=== PATIENT | male | born 1955 | race Caucasian/White ===

== ENCOUNTER 2023-06-08 22:19 | Inpatient (IN) | payer OTHER, SELFPAY ==
[2023-06-08] VITALS (7 sets, daily range): BP systolic 145–158; BP diastolic 74–84; PULSE 62–69; RESP 18; TEMP 36.2; O2SAT 99–100; BMI 24.4
--- NOTE | 2023-06-08 22:29 | DI.CT.S_ITS ---
PROCEDURE: CT ABDOMEN PELVIS W CON INDICATIONS: LLQ abdominal pain. TECHNIQUE: After the administration of IV contrast, axial sections were acquired from the lung bases to the pubic symphysis. Coronal and sagittal reformats were performed. For radiation dose reduction, the following was used: automated exposure control, adjustment of mA and/or kV according to patient size. COMPARISON: None. FINDINGS: Image quality: Excellent. Lung bases: There is minimal atelectasis. Heart: Heart is normal in size. ABDOMEN: Liver: There is a cyst in the right hepatic lobe. The Gallbladder: Within normal limits without calcified gallstones. Biliary ducts: No biliary ductal dilatation. Pancreas: Unremarkable. Spleen: Normal in size. Adrenal Glands: No adrenal nodules. Kidneys and Ureters: No hydronephrosis. Stomach and Bowel: There are a few mildly distended loops of small bowel measuring up to 2.8 cm. These include a distended segment in the right mid abdomen with a transition point centered on series 2, image 47. The proximal and distal transition points are in proximity, suggestive of a closed loop obstruction. There is also mild associated upstream small bowel dilatation. No pericecal inflammatory changes to suggest appendicitis. There is colonic diverticulosis without acute diverticulitis. Peritoneum: No abnormal intraperitoneal fluid. No free air. Ventral Wall: No hernia. Abdominal Nodes: No retroperitoneal or mesenteric adenopathy by size criteria. Vessels: Aorta and inferior vena cava are normal in size. PELVIS: Pelvic Organs: Unremarkable. Bladder: Unremarkable. Pelvic Nodes: No enlarged lymph nodes. Miscellaneous: No inguinal hernias are seen. Bones: Visualized osseous structures demonstrate no suspicious focal lesions. IMPRESSION: 1. Findings consistent with a small-bowel obstruction with a closed loop segment in the right mid abdomen. Findings discussed with Dr. Evans on 06/09/2023 at 12:15 a.m.. Dictated by: Hunter Steward M.D. on 06/08/2023 at 23:56 Approved by: Hunter Steward M.D. on 06/09/2023 at 0:17
--- NOTE | 2023-06-08 22:31 | ED_ITS ---
HPI - General Adult General Chief complaint: Abdominal Pain Stated complaint: Poss food poisoning Time Seen by Provider: 06/08/23 22:20 Source: patient Mode of arrival: Ambulatory Limitations: no limitations History of Present Illness HPI narrative: 68-year-old male who had a fairly sudden onset of abdominal pain and cramping that started today after he ate lunch. He states he is not nauseous or vomiting but feels like that he wants to vomit. Did have a bowel movement this morning but nothing since the onset of the symptoms. Has had a history of diverticulitis but this feels different from that. No fevers. No problems urinating. Related Data Home Medications Medication Instructions Recorded Confirmed ascorbic acid (vitamin C) 500 mg ##0 08/29/17 tablet cholecalciferol (vitamin D3) 25 ##0 08/29/17 mcg/spray(1,000 unit/spray) subling spray, susp coQ10 (ubiquinol) 100 mg capsule ##0 08/29/17 levothyroxine 13 mcg capsule ##0 08/29/17 (Tirosint) omega 3-tea-bhg-fish oil 1,000 mg 1,000 mg PO ##0 08/29/17 (120 mg-180 mg) capsule (Fish Oil) rutin 500 mg tablet ##0 08/29/17 testosterone 50 mg/5 gram (1 %) ##0 08/29/17 transdermal gel (Testim) vitamin B complex (B ##0 08/29/17 Complex-Vitamin B12 tablet) Previous Rx's Medication Instructions Recorded amoxicillin 875 mg-potassium 875 mg PO BID #20 tabs 08/29/17 clavulanate 125 mg tablet (Augmentin) Allergies Allergy/AdvReac Type Severity Reaction Status Date / Time gluten [GLUTEN] Allergy Mild intolerant Verified 06/08/23 22:30 Review of Systems Constitutional Constitutional: Reports system reviewed and no additional complaints, except as documented Gastrointestinal Gastrointestinal: Reports system reviewed and no additional complaints, except as documented Genitourinary Genitourinary: Reports system reviewed and no additional complaints, except as documented Integumentary/Breasts Skin/Breast: Reports system reviewed and no additional complaints, except as documented Neurologic Neurologic: Reports system reviewed and no additional complaints, except as documented Hematologic/Lymphatic On Anticoagulants: No Patient History Social History (Reviewed 09/11/23 @ 00:16 by MELISSA Saldaña Smoking Status: Never smoker Exam Initial Vital Signs Initial Vital Signs: Vital Signs Pulse Oximetry 99 06/08/23 22:26 Const General: cooperative and comfortable Resp Effort & Inspection: normal respiratory effort Auscultation: clear to auscultation bilaterally Cardio Rate: regular rate GI Inspection: normal to inspection and non-distended Palpation: soft, No firm and tender Neuro General: patient alert, patient awake and moves all extremities Extrem General: normal to inspection and capillary refill normal Course Orders Ordered: ED Orders 06/08/23 22:29 CT abdomen pelvis w con Stat 06/08/23 22:30 Complete Blood Count AUTO DIFF Stat Comprehensive Metabolic Panel Stat Lipase Stat Sodium Chloride (Normal Saline 0.9%) 1,000 mls @ 125 mls/hr IV CONT SALEEM Discontinued Medications Hydromorphone HCl (Hydromorphone 0.5 Mg Inj) 0.5 mg IV NOW ONE Stop: 06/08/23 23:46 Last Admin: 06/08/23 23:55 Dose: 0.5 mg Documented By: SHERRIE Sodium Chloride (Normal Saline 0.9%) 1,000 mls @ 1,000 mls/hr IV BOLUS ONE Stop: 06/08/23 23:28 Last Infusion: 06/08/23 23:40 Dose: 0 mls/hr Documented By: Admin: 06/08/23 22:41 Dose: 1,000 mls/hr Documented By: ABRIL Vital Signs Vital signs: Vital Signs - 8 hr 06/08/23 22:30 06/08/23 22:26 06/08/23 22:27 Temperature 97.2 F L Pulse Rate 68 Respiratory Rate 18 Blood Pressure 158/76 H 158/76 H Pulse Oximetry 100 99 Oxygen Delivery Method Room Air 06/08/23 22:27 06/08/23 22:29 06/08/23 22:29 Temperature Pulse Rate 68 63 Respiratory Rate Blood Pressure 153/76 H Pulse Oximetry 100 100 Oxygen Delivery Method 06/08/23 22:30 06/08/23 22:30 06/08/23 23:00 Temperature Pulse Rate 63 Respiratory Rate Blood Pressure 145/74 H 155/82 H Pulse Oximetry 100 Oxygen Delivery Method 06/08/23 23:00 06/08/23 23:17 06/08/23 23:17 Temperature Pulse Rate 65 62 Respiratory Rate Blood Pressure 156/84 H Pulse Oximetry 100 100 Oxygen Delivery Method 06/08/23 23:30 06/08/23 23:30 Temperature Pulse Rate 69 Respiratory Rate Blood Pressure 155/77 H Pulse Oximetry 100 Oxygen Delivery Method Medical Decision Making Lab Data Lab results reviewed: Yes I reviewed the patient's lab results. 06/08/23 22:30 06/08/23 22:30 Labs: Lab Results 06/08/23 06/08/23 Range/Units 22:30 22:30 WBC 7.3 (4.5-11.0) X10^3/uL RBC 4.33 L (4.5-5.9) X10^6/uL Hgb 14.5 (13.5-17.5) g/dL Hct 41.8 (41-53) % MCV 96.5 (80-100) fL MCH 33.4 (26-34) PG MCHC 34.6 (30-36) % RDW 14.6 (11.6-14.8) % Plt Count 258 (150-400) X10^3/uL Neut % (Auto) 67.0 (50-75) % Lymph % (Auto) 24.0 L (25-40) % [place] % (Auto) 7.7 (3-14) % Eos % (Auto) 0.8 L (2-4) % Baso % (Auto) 0.5 (0-2) % Neut # (Auto) 4900 (1435-4935) /uL Lymph # (Auto) 1800 (6577-4053) /uL [place] # (Auto) 600 (0-900) /uL Eos # (Auto) 100 (0-450) /uL Baso # (Auto) 0 (0-100) /uL Sodium 137 (137-145) mmol/L Potassium 3.8 (3.4-5.1) mmol/L Chloride 102 (98-107) mmol/L Carbon Dioxide 24 (22-32) mmol/L BUN 29 H (9-20) mg/dL Creatinine 1.42 H (0.66-1.25) mg/dL Estimated GFR 54 L (>60) mL/min BUN/Creatinine Ratio 20.4 (6-22) Glucose 117 H (80-110) mg/dL Calcium 9.3 (8.4-10.2) mg/dL Total Bilirubin 0.9 (0.2-1.3) mg/dL AST 35 (17-59) IU/L ALT 31 (<50) IU/L Alkaline Phosphatase 90 (38-126) U/L Total Protein 7.5 (6.3-8.2) g/dL Albumin 4.4 (3.5-5.0) g/dL Globulin 3.1 (1.7-4.1) g/dL Albumin/Globulin Ratio 1.4 (1.0-2.8) Lipase 190 (23-300) U/L Imaging Data CT scan - abdomen/pelvis: Radiologist's Impression: PROCEDURE:? CT ABDOMEN PELVIS W CON ? INDICATIONS:? LLQ abdominal pain. ? TECHNIQUE:? After the administration of IV contrast, axial sections were acquired from the lung bases to the pubic symphysis.? Coronal and sagittal reformats were performed.? For radiation dose reduction, the following was used:? automated exposure control, adjustment of mA and/or kV according to patient size. ? COMPARISON:? None. ? FINDINGS:? Image quality:? Excellent.? ? Lung bases:? There is minimal atelectasis.? ? Heart:? Heart is normal in size. ? ? ABDOMEN: Liver:? There is a cyst in the right hepatic lobe.? The Gallbladder:? Within normal limits without calcified gallstones.? ? Biliary ducts:? No biliary ductal dilatation.? ? Pancreas:? Unremarkable.? ? Spleen:? Normal in size.? ? Adrenal Glands:? No adrenal nodules.? ? Kidneys and Ureters:? No hydronephrosis.? ? ? Stomach and Bowel:? There are a few mildly distended loops of small bowel measuring up to 2.8 cm.? These include a distended segment in the right mid abdomen with a transition point centered on series 2, image 47. The proximal and distal transition points are in proximity, suggestive of a closed loop obstruction.? There is also mild associated upstream small bowel dilatation.? No pericecal inflammatory changes to suggest appendicitis.? There is colonic diverticulosis without acute diverticulitis. Peritoneum:? No abnormal intraperitoneal fluid.? No free air.? ? Ventral Wall: ? No hernia.? Abdominal Nodes:? No retroperitoneal or mesenteric adenopathy by size criteria.? Vessels:? Aorta and inferior vena cava are normal in size.? ? PELVIS: Pelvic Organs:? Unremarkable.? ? Bladder:? Unremarkable.? ? Pelvic Nodes: No enlarged lymph nodes.? Miscellaneous: No inguinal hernias are seen. ? ? ? Bones:? Visualized osseous structures demonstrate no suspicious focal lesions. ? IMPRESSION:? 1. Findings consistent with a small-bowel obstruction with a closed loop segment in the right mid abdomen.? Findings discussed with Dr. Evans on 06/09/2023 at 12:15 a. m..? MDM Narrative Medical decision making narrative: Symptoms started this morning. He states he denies any nausea and has not had any vomiting but states that he wants to throw up because he thinks he will feel better if he does so. His last bowel movement this morning. No prior abdominal surgeries. Last colonoscopy was within the past 3 months or they remove polyps and told him he had diverticulosis. CT scan today shows closed loop small bowel obstruction. Discussed the case with Dr. Kan on-call for General surgery who will admit for further evaluation and treatment. Discussed need for admission with the patient. We did discuss the findings of the CT scan. He expressed understanding and agreement as well. Discharge Plan Departure Patient Disposition: Admitted As Inpatient Clinical Impression: Small bowel obstruction
[2023-06-08] MEDS: SODIUM CHLORIDE 0.9% 1,000 ML 1000 ML IV (22:41)
[2023-06-08 22:46] LABS: Add Manual Diff / Slide Review NO; Basophils Absolute Auto 0 /uL (0-100); Basophils Percent Auto 0.5 % (0-2); Eosinophils Absolute Auto 100 /uL (0-450); Eosinophils Percent Auto 0.8 % (2-4); Hematocrit 41.8 % (41-53); Hemoglobin 14.5 g/dL (13.5-17.5); Lymphocytes Absolute Auto 1800 /uL (1100-4500); Mean Corpuscular HGB Conc 34.6 % (30-36); Mean Corpuscular Hemoglobin 33.4 PG (26-34); Mean Corpuscular Volume 96.5 fL (80-100); Monocytes Absolute Auto 600 /uL (0-900); Monocytes Percent Auto 7.7 % (3-14); Neutrophils Absolute Auto 4900 /uL (1500-7000); Platelet Count 258 X10^3/uL (150-400); Red Blood Cell Count 4.33 X10^6/uL (4.5-5.9); Red Cell Distribution Width 14.6 % (11.6-14.8); White Blood Cell Count 7.3 X10^3/uL (4.5-11.0)
[2023-06-08 22:57] LABS: Alanine Aminotransferase 31 IU/L (<50); Albumin 4.4 g/dL (3.5-5.0); Albumin Globulin Ratio 1.4 (1.0-2.8); Alkaline Phosphatase 90 U/L (38-126); Aspartate Aminotransferase 35 IU/L (17-59); BUN Creatinine Ratio 20.4 (6-22); Bilirubin Total 0.9 mg/dL (0.2-1.3); Blood Urea Nitrogen 29 mg/dL (9-20); Calcium 9.3 mg/dL (8.4-10.2); Carbon Dioxide 24 mmol/L (22-32); Chloride 102 mmol/L (98-107); Estimated Glomerular Filt Rate 54 mL/min (>60); Globulin 3.1 g/dL (1.7-4.1); Glucose 117 mg/dL (80-110); HEMOLYSIS < 15 (0-50); Lipase 190 U/L (23-300); Potassium 3.8 mmol/L (3.4-5.1); Sodium 137 mmol/L (137-145); Total Protein 7.5 g/dL (6.3-8.2)
--- NOTE | 2023-06-08 23:08 | PC.NURSE ---
Patient's grandson came out of the room asking for someone to talk with the patient. I went in and asked how I could help. Pt reports having increased abdominal cramping and feeling faint. I asked if he felt like he was going to pass out, patient responded no. I informed Pt the next step is a CT scan. geotechnical engineer arrived to transport patient.
[2023-06-08] MEDS: HYDROMORPHONE 0.5 MG INJ IV (23:55)
[2023-06-09] VITALS (9 sets, daily range): BP systolic 102–163; BP diastolic 65–83; PULSE 64–91; RESP 16–17; TEMP 35.9–36.4; O2SAT 96–100; BMI 24.4
--- NOTE | 2023-06-09 | DI.RAD.S_ITS ---
PROCEDURE: XR GASTROGRAFIN CHALLENGE COMPARISON: None. INDICATIONS: sbo FINDINGS: AP view of abdomen 4 hours after infusion of Gastrografin contrast via NG tube shows marked contrast distension of stomach lumen. No contrast is seen in small bowel or colon loops. No contrast extravasation. No gross peritoneal free air. IMPRESSION: Finding is highly suggestive of gastric outlet obstruction, GI correlation is recommended. Dictated by: Alexandru Pop M.D. on 06/09/2023 at 15:42 Approved by: Alexandru Pop M.D. on 06/09/2023 at 15:43
[2023-06-09] MEDS: DEXTROSE 5%-0.45% NS 1,000 ML 100 ML IV ×3 (01:11→21:16)
[2023-06-09] MEDS: HYDROMORPHONE 0.5 MG INJ IV ×2 (01:12→02:46)
[2023-06-09] MEDS: SCOPOLAMINE 1 PATCH TOP (01:13)
[2023-06-09] MEDS: HYDROMORPHONE 1 MG INJ IV ×4 (04:19→10:57)
[2023-06-09] MEDS: ONDANSETRON 4 MG/2 ML INJ IV ×2 (04:20→15:55)
--- NOTE | 2023-06-09 07:49 | DI.RAD.S_ITS ---
PROCEDURE: XR CHEST 1V INDICATIONS: confirm placement of NG TECHNIQUE: One view of the chest was acquired. COMPARISON: None. FINDINGS: Surgical changes and devices: Nasogastric tube tip in the esophagus just proximal to the GE junction. Side port in the mid to distal esophagus Lungs and pleura: Lungs are clear. No pleural effusions or pneumothorax. Mediastinum: Mediastinal contours appear normal. Heart size is normal. Bones and chest wall: No suspicious bony lesions. Overlying soft tissues appear unremarkable. IMPRESSION: Nasogastric tube in the esophagus. Advise repositioning. Approved by: Huber Kaye M.D. on 06/09/2023 at 15:37
--- NOTE | 2023-06-09 08:05 | PC.NURSE ---
0730: a/o, voices needs. ind w/ bed mobility, sitting EOB c/o n/v, no emesis, just retching. orders for NG placement. NG placed successfully w/ assist of RYAN Sommer. patient tolerated well. XR to confirm placement. NG to LIS per Dr Kan, who will be performing gastrographin today. patient resting w/ HOB up 75 degrees. NPO since admission at 0130. call light w/in reach.
[2023-06-09 10:01] LABS: Add Manual Diff / Slide Review NO; Basophils Absolute Auto 0 /uL (0-100); Basophils Percent Auto 0.1 % (0-2); Eosinophils Absolute Auto 0 /uL (0-450); Hematocrit 45.4 % (41-53); Hemoglobin 15.2 g/dL (13.5-17.5); Lymphocytes Absolute Auto 800 /uL (1100-4500); Lymphocytes Percent Auto 5.9 % (25-40); Mean Corpuscular HGB Conc 33.5 % (30-36); Mean Corpuscular Volume 98.7 fL (80-100); Monocytes Absolute Auto 600 /uL (0-900); Monocytes Percent Auto 4.4 % (3-14); Neutrophils Absolute Auto 12100 /uL (1500-7000); Neutrophils Percent Auto 89.6 % (50-75); Platelet Count 271 X10^3/uL (150-400); Red Cell Distribution Width 15.2 % (11.6-14.8); White Blood Cell Count 13.5 X10^3/uL (4.5-11.0)
[2023-06-09 10:12] LABS: Blood Urea Nitrogen 18 mg/dL (9-20); Calcium 9.4 mg/dL (8.4-10.2); Carbon Dioxide 21 mmol/L (22-32); Chloride 103 mmol/L (98-107); Estimated Glomerular Filt Rate > 60 mL/min (>60); Glucose 203 mg/dL (80-110); HEMOLYSIS < 15 (0-50); Potassium 4.2 mmol/L (3.4-5.1); Sodium 136 mmol/L (137-145)
--- NOTE | 2023-06-09 10:20 | P.CONS_ITS ---
History of Present Illness Consult details Date Patient Seen: 06/09/23 Time Patient Seen: 10:21 Chief complaint: Poss food poisoning Narrative: Ricki Stewart is a 68yo M with PMH of hypothyroidism who presented with acute abd pain, NV and found to have SBO. NG tube placed. Dr. Kan general surgery consulted medicine as patient had a run of A-fib on tele overnight. I confirmed this myself and is definitely A-fib on the tele strip, although no EKG was able to capture it. He is currently NSR on tele. He notes no history of A-fib, but says he has family members with it. He drinks alcohol daily. [id number] is 1 due to age alone. He is not opposed to taking a baby aspirin daily for this. He is in quite alot of pain from his SBO, and gastrografin study is planned for today. He denies palpitations, chest pain, or shortness of breath. Meds Home Medications and Allergies Home Medications Medication Instructions Recorded Confirmed Type ascorbic acid (vitamin C) 500 mg 500 mg PO DAILY ##0 08/29/17 06/09/23 History tablet coQ10 (ubiquinol) 100 mg capsule 100 mg PO DAILY ##0 08/29/17 06/09/23 History omega 5-fls-vjy-fish oil 1,000 mg 1,000 mg PO DAILY ##0 08/29/17 06/09/23 History (120 mg-180 mg) capsule (Fish Oil) rutin 500 mg tablet 500 mg PO DAILY ##0 08/29/17 06/09/23 History testosterone 50 mg/5 gram (1 %) See Rx Instructions .Route 08/29/17 06/09/23 History transdermal gel (Testim) .COMPLEX ##0 vitamin B complex (B 1 tab PO DAILY ##0 08/29/17 06/09/23 History Complex-Vitamin B12 tablet) cholecalciferol (vitamin D3) 125 125 mcg PO DAILY 06/09/23 06/09/23 History mcg (5,000 unit) capsule levothyroxine 75 mcg tablet 75 mcg PO DAILY 06/09/23 06/09/23 History liothyronine 5 mcg tablet 5 mcg PO DAILY 06/09/23 06/09/23 History Allergies Allergy/AdvReac Type Severity Reaction Status Date / Time gluten [GLUTEN] Allergy Mild intolerant Verified 06/08/23 22:30 Review of Systems Review of Systems Narrative: All other systems reviewed with the patient and are negative unless otherwise stated. Exam Vital Signs (past 8 hours): - 06/09/23 04:03 06/09/23 08:21 Temperature 97 F L 96.6 F L Pulse Rate 78 64 Respiratory Rate 17 16 Blood Pressure 147/83 H 163/79 H Pulse Oximetry 99 98 Oxygen Flow Rate 0 0 Oxygen Delivery Method Room Air Oxygen Flow Rate 0 Narrative Exam Narrative: GEN: mild distress due to pain, NG tube in place HEENT: moist mucous membranes, PERRL NECK: trachea midline, no JVD CV: regular rate and rhythm, no murmurs PULM: clear bilaterally ABD: distended, tender, no organomegaly EXT: warm and well perfused with no edema NEURO: awake, alert, oriented, no focal deficits Objective Labs 06/09/23 09:50 06/09/23 09:50 Labs: Laboratory Results - last 24 hr 06/08/23 06/08/23 06/09/23 22:30 22:30 09:50 WBC 7.3 13.5 H D RBC 4.33 L 4.60 Hgb 14.5 15.2 Hct 41.8 45.4 MCV 96.5 98.7 MCH 33.4 33.0 MCHC 34.6 33.5 RDW 14.6 15.2 H Plt Count 258 271 Neut % (Auto) 67.0 89.6 H D Lymph % (Auto) 24.0 L 5.9 L [place] % (Auto) 7.7 4.4 Eos % (Auto) 0.8 L 0.0 L Baso % (Auto) 0.5 0.1 Neut # (Auto) 4900 80309 H Lymph # (Auto) 1800 800 L [place] # (Auto) 600 600 Eos # (Auto) 100 0 Baso # (Auto) 0 0 Sodium 137 Potassium 3.8 Chloride 102 Carbon Dioxide 24 BUN 29 H Creatinine 1.42 H Estimated GFR 54 L BUN/Creatinine Ratio 20.4 Glucose 117 H Calcium 9.3 Total Bilirubin 0.9 AST 35 ALT 31 Alkaline Phosphatase 90 Total Protein 7.5 Albumin 4.4 Globulin 3.1 Albumin/Globulin Ratio 1.4 Lipase 190 06/09/23 09:50 WBC RBC Hgb Hct MCV MCH MCHC RDW Plt Count Neut % (Auto) Lymph % (Auto) [place] % (Auto) Eos % (Auto) Baso % (Auto) Neut # (Auto) Lymph # (Auto) [place] # (Auto) Eos # (Auto) Baso # (Auto) Sodium 136 L Potassium 4.2 Chloride 103 Carbon Dioxide 21 L BUN 18 Creatinine 1.00 Estimated GFR > 60 BUN/Creatinine Ratio 18.0 Glucose 203 H Calcium 9.4 Total Bilirubin AST ALT Alkaline Phosphatase Total Protein Albumin Globulin Albumin/Globulin Ratio Lipase PFSH Social History household members: spouse and family Tobacco & Substance Use Smoking Status: Former smoker alcohol intake: current Assessment & Plan Assessment & Plan narrative: # new onset paroxysmal atrial fibrillation -overnight on 06/08-06/09 at 3:00 a.m. patient had transient atrial fibrillation, he then returned in NSR -CHADS2 Vasc of 1 indicating baby aspirin daily -his BP is high but likely due to pain, he denies history of HTN. But if he in fact has HTN his score would be 2 indicating need for anticoag. PCP will need to f/u on this. -patient may start baby aspirin once SBO resolves -suggest also starting low-dose beta shanthi for rate control at 12.5mg of metoprolol succinate daily -should limit his alcohol intake, counseling given -may continue lovenox for now # SBO -management per gen surg # PABLO -creatinine 1.4 on admission and improved to 1 with IVF -monitor # elevated BG -check A1c to screen for diabetes, if positive he will need anticoag for his A- fib # hypothyroidism -can hold synthroid and liothyronine while NPO -check TSH Medicine will continue to follow. Thank you for allowing us to participate in the care of this patient. Should you have any questions, do not hesitate to speak with us directly or call us.
--- NOTE | 2023-06-09 10:32 | PM.HP.1 ---
History of Present Illness History of Present Illness Date Patient Seen: 06/09/23 Time Patient Seen: 07:45 Chief complaint: Poss food poisoning Narrative: Seen for abdominal pain, found to have SBO on CT scan that I also reviewed. No clinical signs of ischemic bowel. Admitted for bowel rest. Last evening his nurse noted he was in Afib via tele. Spontaneously converted to Normal sinus before 12 lead EKG was done. No passing of gas, abdominal pain is focal and in the area that is seen on CT. Nausea but not emesis. [facility] Social History household members: spouse and family Smoking Status: Former smoker alcohol intake: current Meds Home Medications and Allergies Home Medications Medication Instructions Recorded Confirmed Type ascorbic acid (vitamin C) 500 mg 500 mg PO DAILY ##0 08/29/17 06/09/23 History tablet coQ10 (ubiquinol) 100 mg capsule 100 mg PO DAILY ##0 08/29/17 06/09/23 History omega 7-jjb-bdf-fish oil 1,000 mg 1,000 mg PO DAILY ##0 08/29/17 06/09/23 History (120 mg-180 mg) capsule (Fish Oil) rutin 500 mg tablet 500 mg PO DAILY ##0 08/29/17 06/09/23 History testosterone 50 mg/5 gram (1 %) See Rx Instructions .Route 08/29/17 06/09/23 History transdermal gel (Testim) .COMPLEX ##0 vitamin B complex (B 1 tab PO DAILY ##0 08/29/17 06/09/23 History Complex-Vitamin B12 tablet) cholecalciferol (vitamin D3) 125 125 mcg PO DAILY 06/09/23 06/09/23 History mcg (5,000 unit) capsule levothyroxine 75 mcg tablet 75 mcg PO DAILY 06/09/23 06/09/23 History liothyronine 5 mcg tablet 5 mcg PO DAILY 06/09/23 06/09/23 History Allergies Allergy/AdvReac Type Severity Reaction Status Date / Time gluten [GLUTEN] Allergy Mild intolerant Verified 06/08/23 22:30 Exam Vital Signs (past 8 hours): - 06/09/23 04:03 06/09/23 08:21 Temperature 97 F L 96.6 F L Pulse Rate 78 64 Respiratory Rate 17 16 Blood Pressure 147/83 H 163/79 H Pulse Oximetry 99 98 Oxygen Flow Rate 0 0 Oxygen Delivery Method Room Air Oxygen Flow Rate 0 Const General: cooperative and acute distress Nutritional Appearance: average body habitus [facility] Head: normocephalic and atraumatic Face and sinus: normal facial exam Mouth: oral mucosae normal Eyes Sclera: sclerae normal Neck Neck: trachea midline Chest Chest: normal inspection of the chest Resp Effort & Inspection: normal respiratory effort and able to speak in complete sentences Cardio Rate: regular rate Rhythm: abnormal rhythm GI Inspection: distended Palpation: soft Skin General: elasticity normal Neuro General: patient alert, patient awake and patient oriented x3 Cognition: normal cognition Psych Mental Status: mental status grossly normal Judgment: judgment good Objective Labs 06/09/23 09:50 06/09/23 09:50 Labs: Laboratory Results - last 24 hr 06/08/23 06/08/23 06/09/23 22:30 22:30 09:50 WBC 7.3 13.5 H D RBC 4.33 L 4.60 Hgb 14.5 15.2 Hct 41.8 45.4 MCV 96.5 98.7 MCH 33.4 33.0 MCHC 34.6 33.5 RDW 14.6 15.2 H Plt Count 258 271 Neut % (Auto) 67.0 89.6 H D Lymph % (Auto) 24.0 L 5.9 L [place] % (Auto) 7.7 4.4 Eos % (Auto) 0.8 L 0.0 L Baso % (Auto) 0.5 0.1 Neut # (Auto) 4900 97561 H Lymph # (Auto) 1800 800 L [place] # (Auto) 600 600 Eos # (Auto) 100 0 Baso # (Auto) 0 0 Sodium 137 Potassium 3.8 Chloride 102 Carbon Dioxide 24 BUN 29 H Creatinine 1.42 H Estimated GFR 54 L BUN/Creatinine Ratio 20.4 Glucose 117 H Calcium 9.3 Total Bilirubin 0.9 AST 35 ALT 31 Alkaline Phosphatase 90 Total Protein 7.5 Albumin 4.4 Globulin 3.1 Albumin/Globulin Ratio 1.4 Lipase 190 06/09/23 09:50 WBC RBC Hgb Hct MCV MCH MCHC RDW Plt Count Neut % (Auto) Lymph % (Auto) [place] % (Auto) Eos % (Auto) Baso % (Auto) Neut # (Auto) Lymph # (Auto) [place] # (Auto) Eos # (Auto) Baso # (Auto) Sodium 136 L Potassium 4.2 Chloride 103 Carbon Dioxide 21 L BUN 18 Creatinine 1.00 Estimated GFR > 60 BUN/Creatinine Ratio 18.0 Glucose 203 H Calcium 9.4 Total Bilirubin AST ALT Alkaline Phosphatase Total Protein Albumin Globulin Albumin/Globulin Ratio Lipase Assessment & Plan Assessment & Plan narrative: Admitted for SBO in an abdomen w/o prior surgery New Afib now spontaneously back in NSR Plan: Gastrografin challenge for SBO Hospitalist consult for afib, Lovenox Time Spent With Patient Time with patient: less than 30 minutes Quality VTE Deep Vein Thrombosis/Pulmonary Embolism Present on Admission: No
[2023-06-09] MEDS: ENOXAPARIN 40 MG/0.4 ML SYRINGE SUBCUT (10:58)
[2023-06-09 11:23] LABS: Hemoglobin A1C% w Est Avg Glu 4.8 % (4.0-6.0)
[2023-06-09 11:50] LABS: TSH w/ Reflex to FT4 0.86 uIU/mL (0.47-4.68)
[2023-06-09 12:09] LABS: Lactate (Lactic Acid) 1.4 mmol/L (0.7-2.1)
[2023-06-09] MEDS: HYDROCODONE/ACET 5/325 TABLET 2 TAB PO (12:25)
[2023-06-09 12:26] LABS: Procalcitonin 0.05 ng/mL (<0.5)
[2023-06-09] MEDS: MORPHINE 4 MG/ML INJ IV (12:26)
--- NOTE | 2023-06-09 13:22 | CM.DANOTE ---
Initial DCP Assessment Note: Pt is a 68 year-old man who presented to the ED on 06/08 with sudden onset abdominal pain/cramping/nauseous, expressing that he thought he may have food poisoning. CT Abd/Pelvis showed a small bowel obstruction. Pt admitted for bowel rest and continued evaluation of possible surgery. Payor: Sofía Casiano. Surgeon: Dr. Kan PCP: Dr. Jorden Castillo CASH POSTER reviewed chart and team rounds care plan status. Met with pt at bedside to introduce self and role. He presents as uncomfortable, makes minimal eye contact, NG tube placed last evening.Pt is scheduled for further evaluation of SBO with a gastrographin study in order to determine the need for surgery or not. Home d/c needs not clear at this time, will be based on stability and recommendations of surgeon, PT/OT. Care management will continue to monitor care plan, and assist as needed. Discharge Planning/Care Management CM Discharge Assessment Start: 06/09/23 13:13 Freq: Status: Active Protocol: Document 06/09/23 13:14 DPL (Rec: 06/09/23 13:20 DPL [id number]) Discharge Planning Assessment Assigned Sole Blacker ELISEO Solis Advance Directives? No History Provided By Patient Has Patient been admitted in last 30 No days? Prior Living Arrangements House Comment Daughter, son-in-law, and grandson lives in lower level of home Household Members spouse,family Type of transporation used prior to Drives own vehicle admit Independent with ADL's Yes Is patient alert and oriented? Yes Comment N/A Caregiver for Another No Comment N/A Comment Pending continued stabilization, not known at the time of this assessement. Pt is scheduled for a gastrographin test today to determine the need for surgery . Barriers to Discharge No Discharge Plan Home Transportation Arrangement Pending PT/OT eval recommendations, as well as whether or not he has surgery for the small bowel obstruction. Referrals Initiated None needed Additional Comment Will continue to monitor and assist once d/c needs are known. If patient plan is home with home health No : Has signed face to face form been completed? Comment CASH POSTER will complete prior to d/c if needed. Whiteboard Updated in Patient Room with Yes name and ext. # of Sole Blacker Review Status In Process Please Provide Date Initial DC 06/09/23 Assessment Was Performed
--- NOTE | 2023-06-09 15:00 | DI.RAD.S_ITS ---
PROCEDURE: XR ABDOMEN 1V INDICATIONS: gastrografin study TECHNIQUE: One view of the abdomen acquired. COMPARISON: None. FINDINGS: Surgical changes and devices: None. Bowel: The stomach is markedly distended and filled with oral contrast. There is likely a small amount of oral contrast visualized within the proximal and mid small bowel. No definite contrast visualized within the colon. Soft tissues: No suspicious abdominal calcifications. Visualized solid organ contours appear normal in size. Bones: No suspicious bony lesions. IMPRESSION: Distended oral contrast filled stomach with trace oral contrast in the small bowel. Dictated by: Jade Carlson M.D. on 06/09/2023 at 15:59 Approved by: Jade Carlson M.D. on 06/09/2023 at 16:00
[2023-06-09] MEDS: MORPHINE 2 MG/ML INJ IV ×2 (15:55→21:19)
[2023-06-09] MEDS: diazePAM 10 MG/2 ML SYRINGE 2 MG IV ×2 (16:38→21:19)
[2023-06-09] MEDS: PANTOPRAZOLE 40 MG VIAL IV (16:39)
[2023-06-09] MEDS: KETOROLAC 30 MG/ML VIAL 15 MG IV ×2 (16:39→21:17)
--- NOTE | 2023-06-09 19:02 | PC.NURSE ---
1800: after several doses of dilauded, 1 norco, 1 dose of morphine: patient still c/o pain that was consistently 10/10, rigid abd. gastrographin completed, stat abd XR completed. NG at LIS reconnected. approx 900cc drainage collected in the canister. patient expressed some relief.. declined 1 time order for fentanyl IV. call to Dr Kan, she spoke w/ patient, and this RN at length about options for pain relief: continue w/ morphine, start protonix, valium, toradol. all above were given w/ good effect. pain decreased to 2/10 after he rested in the recliner for over an hour. no facial grimacing, no moaning or restlessness noted during this rest. patient states i feel so much better. paperwork on ileus given to patient and . strongly encouraged patient to ambulate hallways. continues w/ IVF, NPO status, and swabs and ice water for good oral care provided at bedside. call light w/in reach.
[2023-06-10 00:14] VITALS: BP 105/65; PULSE 78; RESP 19; TEMP 36.7; O2SAT 95
--- NOTE | 2023-06-10 02:08 | DI.RAD.S_ITS ---
PROCEDURE: XR CHEST 1V INDICATIONS: Re-confirm placement of NG, pt displaced TECHNIQUE: One view of the chest was acquired. COMPARISON: [facility], CT, CT ABDOMEN PELVIS W CON, 06/08/2023, 22:55. [facility], CR, XR CHEST 1V, 06/09/2023, 7:45. FINDINGS: Surgical changes and devices: Enteric tube is coiled in the stomach. The enteric tube has been advanced. There is a small amount of high-density within the stomach which could represent contrast or medication fragments. Lungs and pleura: Minimal hazy and streaky opacity at the lung bases which has the appearance of atelectasis. No pleural effusions or pneumothorax. Mediastinum: Mediastinal contours appear normal. Heart size is normal. Bones and chest wall: No suspicious bony lesions. Overlying soft tissues appear unremarkable. IMPRESSION: Enteric tube is coiled in the stomach in the expected position. Bibasilar atelectasis. This report is concordant with the overnight preliminary interpretation. Dictated by: Maksim Bauer M.D. on 06/10/2023 at 7:41 Approved by: Maksim Bauer M.D. on 06/10/2023 at 7:43
[2023-06-10] MEDS: KETOROLAC 30 MG/ML VIAL 15 MG IV (03:54)
[2023-06-10] MEDS: MORPHINE 2 MG/ML INJ IV (03:55)
[2023-06-10 04:23] VITALS: BP 121/78; PULSE 74; RESP 19; TEMP 36.1; O2SAT 95
[2023-06-10 06:19] LABS: Add Manual Diff / Slide Review NO; Basophils Absolute Auto 0 /uL (0-100); Basophils Percent Auto 0.1 % (0-2); Eosinophils Absolute Auto 0 /uL (0-450); Hematocrit 48.1 % (41-53); Lymphocytes Absolute Auto 1200 /uL (1100-4500); Lymphocytes Percent Auto 9.9 % (25-40); Mean Corpuscular HGB Conc 33.4 % (30-36); Mean Corpuscular Hemoglobin 32.4 PG (26-34); Mean Corpuscular Volume 97.2 fL (80-100); Monocytes Absolute Auto 1000 /uL (0-900); Monocytes Percent Auto 8.4 % (3-14); Neutrophils Absolute Auto 10100 /uL (1500-7000); Neutrophils Percent Auto 81.6 % (50-75); Platelet Count 258 X10^3/uL (150-400); Red Blood Cell Count 4.94 X10^6/uL (4.5-5.9); Red Cell Distribution Width 15.2 % (11.6-14.8); White Blood Cell Count 12.4 X10^3/uL (4.5-11.0)
--- NOTE | 2023-06-10 06:22 | PC.NURSE ---
Pt displaced original NGT placement @0200 while transferring. Tubing re-secured, set to low intermittent suction, and chest XR reports acceptable NGT placement. Pt denies pain, nausea, and tolerated procedure well.
[2023-06-10 06:34] LABS: Alanine Aminotransferase 22 IU/L (<50); Albumin 3.5 g/dL (3.5-5.0); Albumin Globulin Ratio 1.2 (1.0-2.8); Alkaline Phosphatase 68 U/L (38-126); Aspartate Aminotransferase 24 IU/L (17-59); BUN Creatinine Ratio 14.8 (6-22); Bilirubin Total 1.3 mg/dL (0.2-1.3); Blood Urea Nitrogen 30 mg/dL (9-20); Calcium 8.5 mg/dL (8.4-10.2); Carbon Dioxide 25 mmol/L (22-32); Chloride 103 mmol/L (98-107); Estimated Glomerular Filt Rate 35 mL/min (>60); Globulin 2.9 g/dL (1.7-4.1); Glucose 137 mg/dL (80-110); HEMOLYSIS < 15 (0-50); Potassium 4.4 mmol/L (3.4-5.1); Sodium 133 mmol/L (137-145); Total Protein 6.4 g/dL (6.3-8.2)
--- NOTE | 2023-06-10 07:09 | DI.US.S_ITS ---
PROCEDURE: US RENAL COMPLETE INDICATIONS: ACUTE KIDNEY INJURY TECHNIQUE: Real-time scanning was performed of the kidneys and bladder, with image documentation. COMPARISON: [facility], CT, CT ABDOMEN PELVIS W CON, 06/08/2023, 22:55. FINDINGS: Kidneys: Kidneys are normal in size. Right kidney measures 11.3 cm long; left kidney measures 10.7 cm long. Right renal cortical thickness is 1.6 cm; left renal cortical thickness is 1.4 cm. Renal cortical echotexture is normal. No hydronephrosis or nephrolithiasis. No suspicious solid mass lesions. Bladder: Pre-void bladder volume is 61.4 mL. Post-void residual is 3.4 mL. Pre-void images demonstrate no intraluminal masses or stones. On pre-void images, bilateral ureteral jets are noted with color Doppler interrogation. (Of note, ureteral jets may not be detectable in up to 25% of cases due to insufficient differences in specific gravity between ureteral and bladder urine). Miscellaneous: Ascites in the right upper quadrant is noted. IMPRESSION: 1. The kidneys are normal in appearance without hydronephrosis. 2. Incidental note of right upper quadrant ascites. Dictated by: Camacho Hardy M.D. on 06/10/2023 at 11:53 Approved by: Camacho Hardy M.D. on 06/10/2023 at 11:54
[2023-06-10] MEDS: SODIUM CHLORIDE 0.9% 1,000 ML 125 ML IV (07:36)
[2023-06-10 08:00] VITALS: BP 109/76; PULSE 82; RESP 17; TEMP 36.3; O2SAT 98
--- NOTE | 2023-06-10 08:37 | P.PN_ITS ---
Subjective Subjective Interval history: Patient's Cr bumped from 1 to 2 overnight. Renal US negative but shows some RUQ ascites. IVF given. Patient states he is not passing any gas at all. NG tube as not been removing much. His abd pain is improved. Exam Vital Signs (past 8 hours): - 06/10/23 04:23 Temperature 97 F L Pulse Rate 74 Respiratory Rate 19 Blood Pressure 121/78 Pulse Oximetry 95 Oxygen Flow Rate 0 Oxygen Delivery Method Room Air Oxygen Flow Rate 0 Narrative Exam Narrative: GEN: calm, NG tube in place HEENT: moist mucous membranes, PERRL NECK: trachea midline, no JVD CV: regular rate and rhythm, no murmurs PULM: clear bilaterally ABD: distended, tender, no organomegaly EXT: warm and well perfused with no edema NEURO: awake, alert, oriented, no focal deficits Objective Labs 06/10/23 06:05 06/10/23 06:05 Labs: Laboratory Results - last 24 hr 06/09/23 06/09/23 06/09/23 09:50 09:50 09:50 WBC 13.5 H D RBC 4.60 Hgb 15.2 Hct 45.4 MCV 98.7 MCH 33.0 MCHC 33.5 RDW 15.2 H Plt Count 271 Neut % (Auto) 89.6 H D Lymph % (Auto) 5.9 L [place] % (Auto) 4.4 Eos % (Auto) 0.0 L Baso % (Auto) 0.1 Neut # (Auto) 74738 H Lymph # (Auto) 800 L [place] # (Auto) 600 Eos # (Auto) 0 Baso # (Auto) 0 Sodium 136 L Potassium 4.2 Chloride 103 Carbon Dioxide 21 L BUN 18 Creatinine 1.00 Estimated GFR > 60 BUN/Creatinine Ratio 18.0 Glucose 203 H Hemoglobin A1c Lactate Calcium 9.4 Total Bilirubin AST ALT Alkaline Phosphatase Total Protein Albumin Globulin Albumin/Globulin Ratio Procalcitonin TSH 0.86 06/09/23 06/09/23 06/09/23 09:50 09:50 11:50 WBC RBC Hgb Hct MCV MCH MCHC RDW Plt Count Neut % (Auto) Lymph % (Auto) [place] % (Auto) Eos % (Auto) Baso % (Auto) Neut # (Auto) Lymph # (Auto) [place] # (Auto) Eos # (Auto) Baso # (Auto) Sodium Potassium Chloride Carbon Dioxide BUN Creatinine Estimated GFR BUN/Creatinine Ratio Glucose Hemoglobin A1c 4.8 Lactate 1.4 Calcium Total Bilirubin AST ALT Alkaline Phosphatase Total Protein Albumin Globulin Albumin/Globulin Ratio Procalcitonin 0.05 TSH 06/10/23 06/10/23 06/10/23 06:05 06:05 06:05 WBC 12.4 H RBC 4.94 Hgb 16.0 Hct 48.1 MCV 97.2 MCH 32.4 MCHC 33.4 RDW 15.2 H Plt Count 258 Neut % (Auto) 81.6 H Lymph % (Auto) 9.9 L [place] % (Auto) 8.4 Eos % (Auto) 0.0 L Baso % (Auto) 0.1 Neut # (Auto) 87795 H Lymph # (Auto) 1200 [place] # (Auto) 1000 H Eos # (Auto) 0 Baso # (Auto) 0 Sodium 133 L Potassium 4.4 Chloride 103 Carbon Dioxide 25 BUN 30 H Creatinine 2.03 H Estimated GFR 35 L BUN/Creatinine Ratio 14.8 Glucose 137 H Hemoglobin A1c Lactate 1.0 Calcium 8.5 Total Bilirubin 1.3 AST 24 ALT 22 Alkaline Phosphatase 68 Total Protein 6.4 Albumin 3.5 Globulin 2.9 Albumin/Globulin Ratio 1.2 Procalcitonin TSH FORMERLY [facility], 1928–1983 Social History household members: spouse and family Smoking Status: Former smoker alcohol intake: current Assessment & Plan Assessment & Plan narrative: # new onset paroxysmal atrial fibrillation -overnight on 06/08-06/09 at 3:00 a.m. patient had transient atrial fibrillation, he then returned in NSR -CHADS2 Vasc of 1 indicating baby aspirin daily -his BP is high but likely due to pain, he denies history of HTN. But if he in fact has HTN his score would be 2 indicating need for anticoag. PCP will need to f/u on this. -patient may start baby aspirin once SBO resolves -suggest also starting low-dose beta shanthi for rate control at 12.5mg of metoprolol succinate daily -should limit his alcohol intake, counseling given -may continue lovenox for now # SBO -gastrografin showed possible GOO, NG tube in place but not removing much -patient not passing any gas -gen surg thinks ileus is the cause of SBO -will obtain CT abd pelvis with oral contrast to better assess SBO and why there is RUQ ascites on US -management per gen surg # PABLO -creatinine 1.4 on admission and improved to 1 with IVF -Cr lenore again to 2, renal US normal -avoid nephrotoxic agents -giving more IVF -monitor # elevated BG -A1c 4.8% # hypothyroidism -can hold synthroid and liothyronine while NPO -TSH normal Medicine will continue to follow. Thank you for allowing us to participate in the care of this patient. Should you have any questions, do not hesitate to speak with us directly or call us. Quality VTE Deep Vein Thrombosis/Pulmonary Embolism Present on Admission: No
[2023-06-10] MEDS: SODIUM CHLORIDE 0.45% 1,000 ML 1000 ML IV (09:15)
[2023-06-10] MEDS: PANTOPRAZOLE 40 MG VIAL IV (09:15)
[2023-06-10 09:50] LABS: Appearance Urine UA SL CLOUDY; Bilirubin Urine UA 1+ (NEGATIVE); Color Urine UA ORANGE; Glucose Urine UA NEGATIVE (Negative); Ketones Urine UA TRACE (NEGATIVE); Leukocyte Esterase Urine UA NEGATIVE (NEGATIVE); Nitrite Urine UA POSITIVE (Negative); Occult Blood Urine UA NEGATIVE (Negative); Protein Urine UA 1+ (Negative); Specific Gravity Urine UA >=1.030 (1.000-1.035); pH Urine UA 5.5 (4.5-8.0)
[2023-06-10 10:01] LABS: Bacteria Urine None Seen; Ictotest Urine Negative (Negative); RBC Urine None Seen (0-5/HPF); WBC Urine 1-5/HPF (0-5/HPF)
[2023-06-10 10:02] LABS: Culture Indicated Urine Specimen Cultured; Hyaline Casts Urine 10-30/LPF; Squamous Epithelial Cell Urine 1-5 /HPF (0-5/HPF)
[2023-06-10 12:00] VITALS: BP 118/72; PULSE 73; RESP 17; TEMP 36.2; O2SAT 95
[2023-06-10] MEDS: HYDROMORPHONE 0.5 MG INJ IV ×2 (12:16→15:44)
--- NOTE | 2023-06-10 13:31 | PM.PN.1 ---
Subjective Subjective Date Patient Seen: 06/10/23 Time Patient Seen: 13:31 Interval history: Still no flatus or BM, NGT has minimal out but there is an issue with the function of NGT and thickness of the gastric content. Residual gastrografin seen on images today. No significant pain like yesterday. Exam Vital Signs (past 8 hours): - 06/10/23 08:00 Temperature 97.3 F L Pulse Rate 82 Respiratory Rate 17 Blood Pressure 109/76 Pulse Oximetry 98 Oxygen Flow Rate 0 Oxygen Delivery Method Room Air Oxygen Flow Rate 0 Narrative Exam Narrative: abdomen soft, slight distended, no focal tenderness. Objective Labs 06/10/23 06:05 06/10/23 06:05 Labs: Laboratory Results - last 24 hr 06/10/23 06/10/23 06/10/23 06:05 06:05 06:05 WBC 12.4 H RBC 4.94 Hgb 16.0 Hct 48.1 MCV 97.2 MCH 32.4 MCHC 33.4 RDW 15.2 H Plt Count 258 Neut % (Auto) 81.6 H Lymph % (Auto) 9.9 L [place] % (Auto) 8.4 Eos % (Auto) 0.0 L Baso % (Auto) 0.1 Neut # (Auto) 38401 H Lymph # (Auto) 1200 [place] # (Auto) 1000 H Eos # (Auto) 0 Baso # (Auto) 0 Sodium 133 L Potassium 4.4 Chloride 103 Carbon Dioxide 25 BUN 30 H Creatinine 2.03 H Estimated GFR 35 L BUN/Creatinine Ratio 14.8 Glucose 137 H Lactate 1.0 Calcium 8.5 Total Bilirubin 1.3 AST 24 ALT 22 Alkaline Phosphatase 68 Total Protein 6.4 Albumin 3.5 Globulin 2.9 Albumin/Globulin Ratio 1.2 Urine Color Urine Appearance Urine pH Ur Specific [place] Urine Protein Urine Glucose (UA) Urine Ketones Urine Occult Blood Urine Nitrate Urine Bilirubin Ur Bilirubin Confirm Urine Urobilinogen Ur Leukocyte Esterase Urine RBC Urine WBC Ur Squamous Epith Cells Urine Bacteria Hyaline Casts Ur Culture Indicated? 06/10/23 09:20 WBC RBC Hgb Hct MCV MCH MCHC RDW Plt Count Neut % (Auto) Lymph % (Auto) [place] % (Auto) Eos % (Auto) Baso % (Auto) Neut # (Auto) Lymph # (Auto) [place] # (Auto) Eos # (Auto) Baso # (Auto) Sodium Potassium Chloride Carbon Dioxide BUN Creatinine Estimated GFR BUN/Creatinine Ratio Glucose Lactate Calcium Total Bilirubin AST ALT Alkaline Phosphatase Total Protein Albumin Globulin Albumin/Globulin Ratio Urine Color [place] Urine Appearance Sl cloudy Urine pH 5.5 Ur Specific [place] >=1.030 H Urine Protein 1+ H Urine Glucose (UA) Negative Urine Ketones Trace H Urine Occult Blood Negative Urine Nitrate Positive H Urine Bilirubin 1+ H Ur Bilirubin Confirm Negative Urine Urobilinogen 1.0 Ur Leukocyte Esterase Negative Urine RBC None seen Urine WBC 1-5/hpf Ur Squamous Epith Cells 1-5 /hpf Urine Bacteria None seen Hyaline Casts 10-30/lpf Ur Culture Indicated? Specimen cultured PFSH Social History household members: spouse and family Smoking Status: Former smoker alcohol intake: current Assessment & Plan Assessment & Plan narrative: SBO is likely resolved or non existent given the caliber of SB we can see from the small amount of gastrografin that left the stomach. Ileus seen clearly as the gastrografin never left the stomach after 4 hours. By process of elimination this is likely a viral syndrome Acute renal injury either from dehydration or bumped due to Toradol which has been stopped. Plan: supportive care NGT clamp trial with sips of clears. Time Spent With Patient Time with patient: 30 to 49 minutes with 50% spent counseling/coordinating care Quality VTE Deep Vein Thrombosis/Pulmonary Embolism Present on Admission: No
--- NOTE | 2023-06-10 14:17 | PC.NURSE ---
1415 NG clamped. pt given/taking in sips of contrast in preparation for CT procedure scheduled to be around 1445.
--- NOTE | 2023-06-10 14:51 | DI.CT.S_ITS ---
PROCEDURE: CT ABDOMEN PELVIS WO CON INDICATIONS: SBO, possible GOO on gastrografin TECHNIQUE: After the administration of oral contrast, 5 mm thick sections acquired from the diaphragms to the symphysis. 5 mm coronal and sagittal reformats were performed. For radiation dose reduction, the following was used: automated exposure control, adjustment of mA and/or kV according to patient size. COMPARISON: None. FINDINGS: Image quality: Excellent. ABDOMEN: Lung bases: Atelectasis is present at the right lung base. There is a small low-density right pleural effusion. Solid organs: Liver is normal in size. A hepatic cyst is noted within the superior right hepatic lobe. Vicarious excretion of contrast is present within the gallbladder. Pancreas is normal in size. Spleen is normal in size. No adrenal nodules. Both kidneys are normal in size, without hydronephrosis or nephrolithiasis. Peritoneum and bowel: A nasogastric tube is present within the gastric fundus. The esophagus is patulous and filled with oral contrast where visualized. The stomach is distended and filled with oral contrast. The duodenum is decompressed. The proximal jejunum is decompressed. The midportion of the small bowel is dilated and filled with oral contrast. A discrete tapered narrowing is present within the right mid abdomen (series 2/image 63 and series 4/image 31). Findings suggest abrupt partial or near complete bowel obstruction secondary to an internal hernia. The downstream small bowel is decompressed without the presence of oral contrast. The colon demonstrates normal caliber and wall thickness and the right hemicolon is filled with some stool. There are scattered sigmoid diverticula. No evidence for diverticulitis. There is a moderate amount of low-density free fluid within the abdomen and pelvis. Nodes and vessels: No retroperitoneal or mesenteric adenopathy by size criteria. Aorta and inferior vena cava are normal in size. Miscellaneous: No ventral hernias. PELVIS: Genitourinary: Bladder wall thickness is normal. Miscellaneous: No inguinal hernias or adenopathy. Bones: No suspicious bony lesions. No vertebral body compression fractures. IMPRESSION: 1. Small bowel obstruction as above likely secondary to internal hernia. 2. Diverticulosis. No acute diverticulitis. 3. Probable right basilar atelectasis although aspiration/infection cannot be entirely excluded. Consider short interval plain film follow-up to ensure resolution. Dictated by: Jade Carlson M.D. on 06/10/2023 at 15:27 Approved by: Jade Carlson M.D. on 06/10/2023 at 15:35
[2023-06-10 16:00] VITALS: BP 117/77; PULSE 77; RESP 17; TEMP 36.6; O2SAT 96
--- NOTE | 2023-06-10 16:41 | PM.CALLCOV.1 ---
Call Coverage Note Note Date of Patient Contact: 06/10/23 Time of Patient Contact: 16:41 Narrative of Care Provided: Repeat CT scan shows persistent transition in Right mid abdomen possibly an internal hernia, along with new free fluid in abdomen. Plan is NPO, NGT to LIS and scheduled for Xlap tomorrow if no significant change.
[2023-06-10] MEDS: SODIUM CHLORIDE 0.9% 1,000 ML 100 ML IV (19:04)
[2023-06-10 20:00] VITALS: BP 146/79; PULSE 78; RESP 16; TEMP 37.1; O2SAT 98
[2023-06-10] MEDS: diazePAM 10 MG/2 ML SYRINGE 2 MG IV (20:47)
[2023-06-10] MEDS: HYDROMORPHONE 1 MG INJ IV (20:47)
[2023-06-11] VITALS (18 sets, daily range): BP systolic 116–164; BP diastolic 63–87; PULSE 73–95; RESP 7–18; TEMP 35.6–37.6; O2SAT 91–99; BMI 24.4
[2023-06-11] MEDS: HYDROMORPHONE 1 MG INJ IV ×6 (03:25→20:28)
[2023-06-11] MEDS: diazePAM 10 MG/2 ML SYRINGE 2 MG IV ×2 (03:26→20:30)
[2023-06-11] MEDS: PANTOPRAZOLE 40 MG VIAL IV (08:34)
[2023-06-11 08:47] LABS: Add Manual Diff / Slide Review NO; Basophils Absolute Auto 0 /uL (0-100); Basophils Percent Auto 0.2 % (0-2); Eosinophils Absolute Auto 0 /uL (0-450); Eosinophils Percent Auto 0.3 % (2-4); Hematocrit 41.6 % (41-53); Hemoglobin 14.1 g/dL (13.5-17.5); Lymphocytes Absolute Auto 1000 /uL (1100-4500); Lymphocytes Percent Auto 9.2 % (25-40); Mean Corpuscular HGB Conc 33.8 % (30-36); Mean Corpuscular Hemoglobin 32.7 PG (26-34); Mean Corpuscular Volume 96.9 fL (80-100); Monocytes Absolute Auto 1100 /uL (0-900); Monocytes Percent Auto 10.2 % (3-14); Neutrophils Absolute Auto 8400 /uL (1500-7000); Neutrophils Percent Auto 80.1 % (50-75); Platelet Count 231 X10^3/uL (150-400); Red Blood Cell Count 4.29 X10^6/uL (4.5-5.9); Red Cell Distribution Width 14.7 % (11.6-14.8); White Blood Cell Count 10.5 X10^3/uL (4.5-11.0)
[2023-06-11 08:58] LABS: BUN Creatinine Ratio 21.8 (6-22); Blood Urea Nitrogen 26 mg/dL (9-20); Calcium 8.6 mg/dL (8.4-10.2); Carbon Dioxide 29 mmol/L (22-32); Chloride 102 mmol/L (98-107); Estimated Glomerular Filt Rate > 60 mL/min (>60); Glucose 102 mg/dL (80-110); HEMOLYSIS 23 (0-50); Potassium 4.7 mmol/L (3.4-5.1); Sodium 136 mmol/L (137-145)
[2023-06-11 09:05] LABS: Magnesium 1.6 mg/dL (1.6-2.3)
--- NOTE | 2023-06-11 10:29 | P.OP.PRE_ITS ---
Pre-operative Note COVID-19 COVID-19 status: Negative Interval Note History & Physical reviewed/Exam performed by Physician: Yes Changes to H&P: Yes H&P completed within 30 days and has changed as indicated here:: failed gastrogr afin, repeat CT scan shows persistent SBO with transition. Acute renal injury has resolved. One episode of Afib that spontaneously converted to NSR. Going for Xlap
--- NOTE | 2023-06-11 10:38 | PC.NURSE ---
Day shift: Pt to OR with IRON LAUNDER OPERATOR at 1030.
[2023-06-11] MEDS: LACTATED RINGERS 1,000 ML 120 ML IV ×2 (10:54→14:00)
[2023-06-11] MEDS: CEFAZOLIN VIAL 2 GM in SODIUM CHLORIDE 0.9% 100 ML IV (11:28)
--- NOTE | 2023-06-11 12:19 | P.OP_ITS ---
Operative Date/Time/Diagnoses Date of procedure: 06/11/23 Time of procedure: 12:19 Pre-op diagnosis: Small bowel obstruction Post-op diagnosis: same Procedure & Clinicians Procedure: Exploratory laparotomy with lysis of adhesion Same procedure as scheduled: Yes Indications: Small bowel obstruction Surgeon: Jolly Kan Click Yes if Unassisted: No Anesthesia Type: General Operative Notes Findings: Single adhesive band in the mid jejunum, no internal hernia identified. Bowel was congested, but viable, no resection required Closure Type: primary Specimen(s): none sent Applied: other (NG tube remained in place) Estimated Blood Loss (mL): 20 Blood products transfused: none Procedure in detail: Preop diagnosis: Small-bowel obstruction Postop diagnosis: Same Operative procedure: Exploratory laparotomy with lysis of adhesion Surgeon: Tina Kan MD assisted living assistant: FRANCISCO Montoya Findings: A single band causing obstruction in the mid to distal jejunal portion of the small bowel. Congestion of the mesentery and hemorrhagic ascites. Procedure: Patient placed in a supine position. Prepped and draped in sterile fashion to expose his abdomen. Supraumbilical midline incision was created using electrocautery and open technique. I was able to mobilize the small bowel into the wound and with blunt dissection released the single band adhesion from the omentum. Abdomen was suctioned to remove free fluid, omentum was brought down across the exposed bowel. Fascia was closed with a running looped 0 PDS. Skin was closed with a running 4-0 Vicryl. Steri-Strips and sterile dressings were placed. Francisco tient was awakened, extubated, taken to recovery room in stable condition. Needle, instrument, sponge counts were correct. Blood loss: 20 mL Specimen: None
[2023-06-11] MEDS: fentaNYL 100 MCG/2 ML INJ IV (12:27)
--- NOTE | 2023-06-11 12:54 | SUR.PHASEI ---
Assumed care. Patient reported pain improved to 7/10 after reposition and ice pack.
--- NOTE | 2023-06-11 13:04 | SUR.PHASEI ---
Report called to Karina
--- NOTE | 2023-06-11 13:34 | SUR.PHASEI ---
Patient transferred to the floor with garcia ring. Report given to Cristal, condition stable. Mild shadow drainage to abdominal dressing. NG to LIS.
[2023-06-11] MEDS: MAGNESIUM SULFATE 2 GM/50 ML PIGGYBACK IV (14:00)
--- NOTE | 2023-06-11 15:00 | PM.PN.1 ---
Subjective Subjective Interval history: Patient to go to ex lap surgery today after CT abd w po contrast yesterday showed possible internal hernia causing bowel obstruction. Exam Vital Signs (past 8 hours): - 06/11/23 08:00 06/11/23 10:49 06/11/23 12:19 Temperature 96.1 F L 98.2 F 98.8 F Pulse Rate 81 84 85 Respiratory Rate 18 15 18 Blood Pressure 143/76 H 145/83 H 139/79 Pulse Oximetry 96 98 95 Oxygen Delivery Method Room Air Room Air Oxygen Flow Rate 06/11/23 12:24 06/11/23 12:46 06/11/23 12:29 Temperature 99.7 F H Pulse Rate 75 73 74 Respiratory Rate 16 18 12 Blood Pressure 140/74 164/81 H 147/78 H Pulse Oximetry 94 99 94 Oxygen Delivery Method Nasal Cannula Room Air Nasal Cannula Oxygen Flow Rate 2 4 06/11/23 12:34 06/11/23 12:59 06/11/23 13:12 Temperature 98.6 F Pulse Rate 75 79 Respiratory Rate 12 7 L Blood Pressure 151/81 H 150/87 H Pulse Oximetry 94 97 Oxygen Delivery Method Room Air Nasal Cannula Oxygen Flow Rate 2 06/11/23 13:15 06/11/23 13:35 Temperature 97.1 F L Pulse Rate 84 83 Respiratory Rate 13 16 Blood Pressure 144/79 H 149/83 H Pulse Oximetry 93 94 Oxygen Delivery Method Room Air Oxygen Flow Rate Oxygen Delivery Method Room Air Oxygen Flow Rate 2 Narrative Exam Narrative: GEN: calm, NG tube in place HEENT: moist mucous membranes, PERRL NECK: trachea midline, no JVD CV: regular rate and rhythm, no murmurs PULM: clear bilaterally ABD: distended, tender, no organomegaly EXT: warm and well perfused with no edema NEURO: awake, alert, oriented, no focal deficits Objective Labs 06/11/23 08:36 06/11/23 08:36 Labs: Laboratory Results - last 24 hr 06/11/23 06/11/23 06/11/23 08:36 08:36 08:36 WBC 10.5 RBC 4.29 L Hgb 14.1 Hct 41.6 MCV 96.9 MCH 32.7 MCHC 33.8 RDW 14.7 Plt Count 231 Neut % (Auto) 80.1 H Lymph % (Auto) 9.2 L [place] % (Auto) 10.2 Eos % (Auto) 0.3 L Baso % (Auto) 0.2 Neut # (Auto) 8400 H Lymph # (Auto) 1000 L [place] # (Auto) 1100 H Eos # (Auto) 0 Baso # (Auto) 0 Sodium 136 L Potassium 4.7 Chloride 102 Carbon Dioxide 29 BUN 26 H Creatinine 1.19 Estimated GFR > 60 BUN/Creatinine Ratio 21.8 Glucose 102 Calcium 8.6 Magnesium 1.6 PFSH Social History household members: spouse and family Smoking Status: Former smoker alcohol intake: current Assessment & Plan Assessment & Plan narrative: # new onset paroxysmal atrial fibrillation -overnight on 06/08-06/09 at 3:00 a.m. patient had transient atrial fibrillation, he then returned in NSR -CHADS2 Vasc of 1 indicating baby aspirin daily -his BP is high but likely due to pain, he denies history of HTN. But if he in fact has HTN his score would be 2 indicating need for anticoag. PCP will need to f/u on this. -patient may start baby aspirin once SBO resolves -suggest also starting low-dose beta shanthi for rate control at 12.5mg of metoprolol succinate daily -should limit his alcohol intake, counseling given -hold lovenox # SBO 2/2 internal abdominal adhesion -gastrografin showed possible GOO, NG tube in place but not removing much -patient not passing any gas -gen surg thinks ileus is the cause of SBO -will obtain CT abd pelvis with oral contrast to better assess SBO and why there is RUQ ascites on US -CT abd w po contrast showed possible internal hernia causing obstruction -gen surg took for ex lap on 06/11 which showed adhesive band causing obstruction, this was released and SBO now resolving # PABLO, resolved -creatinine 1.4 on admission and improved to 1 with IVF -Cr lenore again to 2, renal US normal -avoid nephrotoxic agents -Cr now normalized with IVF -monitor # elevated BG -A1c 4.8% # hypothyroidism -can hold synthroid and liothyronine while NPO -TSH normal Medicine will continue to follow. Thank you for allowing us to participate in the care of this patient. Should you have any questions, do not hesitate to speak with us directly or call us. Quality VTE Deep Vein Thrombosis/Pulmonary Embolism Present on Admission: No
[2023-06-11] MEDS: [UNRECOGNIZED DRUG - OTHER] IV (16:39)
[2023-06-11] MEDS: DEXTROSE IV (16:39)
[2023-06-12] VITALS (7 sets, daily range): BP systolic 123–167; BP diastolic 75–92; PULSE 73–82; RESP 13–18; TEMP 36.4–36.8; O2SAT 92–98
[2023-06-12] MEDS: [UNRECOGNIZED DRUG - OTHER] IV ×3 (00:57→17:39)
[2023-06-12] MEDS: DEXTROSE IV ×3 (00:57→17:39)
[2023-06-12] MEDS: HYDROMORPHONE 1 MG INJ IV ×9 (01:01→23:59)
[2023-06-12 06:56] LABS: Add Manual Diff / Slide Review NO; Basophils Absolute Auto 0 /uL (0-100); Eosinophils Absolute Auto 0 /uL (0-450); Eosinophils Percent Auto 0.1 % (2-4); Hematocrit 37.4 % (41-53); Hemoglobin 12.8 g/dL (13.5-17.5); Lymphocytes Absolute Auto 1000 /uL (1100-4500); Lymphocytes Percent Auto 11.5 % (25-40); Mean Corpuscular HGB Conc 34.2 % (30-36); Mean Corpuscular Hemoglobin 33.3 PG (26-34); Mean Corpuscular Volume 97.5 fL (80-100); Monocytes Absolute Auto 1000 /uL (0-900); Monocytes Percent Auto 11.4 % (3-14); Neutrophils Absolute Auto 6700 /uL (1500-7000); Platelet Count 227 X10^3/uL (150-400); Red Blood Cell Count 3.84 X10^6/uL (4.5-5.9); Red Cell Distribution Width 14.7 % (11.6-14.8); White Blood Cell Count 8.8 X10^3/uL (4.5-11.0)
[2023-06-12 06:58] LABS: BUN Creatinine Ratio 16.7 (6-22); Blood Urea Nitrogen 18 mg/dL (9-20); Calcium 8.5 mg/dL (8.4-10.2); Carbon Dioxide 29 mmol/L (22-32); Chloride 98 mmol/L (98-107); Estimated Glomerular Filt Rate > 60 mL/min (>60); Glucose 118 mg/dL (80-110); HEMOLYSIS < 15 (0-50); Potassium 3.8 mmol/L (3.4-5.1); Sodium 133 mmol/L (137-145)
[2023-06-12 07:09] LABS: Magnesium 1.8 mg/dL (1.6-2.3)
[2023-06-12] MEDS: PANTOPRAZOLE 40 MG VIAL IV (08:42)
[2023-06-12] MEDS: diazePAM 10 MG/2 ML SYRINGE 2 MG IV ×4 (08:59→23:50)
--- NOTE | 2023-06-12 09:25 | PM.PNPO.1 ---
Subjective Subjective Date Patient Seen: 06/12/23 Time Patient Seen: 09:25 Interval history: Exlap yesterday lysis of adhesions. No return of bowel function yet. Pain adequately controlled. Exam Vital Signs (past 8 hours): - 06/12/23 05:18 06/12/23 08:00 Temperature 97.6 F 97.9 F Pulse Rate 77 81 Respiratory Rate 14 18 Blood Pressure 136/77 128/75 Pulse Oximetry 98 94 Oxygen Flow Rate 0 Oxygen Delivery Method Room Air Oxygen Flow Rate 0 Narrative Exam Narrative: Gen-Adult man alert and oriented Abdomen-Incision CDI NGT bilious Objective Labs 06/12/23 06:25 06/12/23 06:25 Labs: Laboratory Results - last 24 hr 06/12/23 06/12/23 06/12/23 06:25 06:25 06:25 WBC 8.8 RBC 3.84 L Hgb 12.8 L Hct 37.4 L MCV 97.5 MCH 33.3 MCHC 34.2 RDW 14.7 Plt Count 227 Neut % (Auto) 77.0 H Lymph % (Auto) 11.5 L [place] % (Auto) 11.4 Eos % (Auto) 0.1 L Baso % (Auto) 0.0 Neut # (Auto) 6700 Lymph # (Auto) 1000 L [place] # (Auto) 1000 H Eos # (Auto) 0 Baso # (Auto) 0 Sodium 133 L Potassium 3.8 Chloride 98 Carbon Dioxide 29 BUN 18 Creatinine 1.08 Estimated GFR > 60 BUN/Creatinine Ratio 16.7 Glucose 118 H Calcium 8.5 Magnesium 1.8 PFSH Social History household members: spouse and family Smoking Status: Former smoker alcohol intake: current Assessment & Plan Post-op Postoperative Procedures: Procedures Operation Date: 06/11/23 11:15 Actual Procedure Side Surgeon p Exploratory Laparotomy GEN Lysis of adhesions Not Applicable oJlly Kan MD Postoperative status narrative: 68M POD 1 sp exlap and lysis of adhesions for SBO. #post operative ileus-Await return of bowel function. Continue NGT. Ok for sips of clears and ice chips -pLovenox and SCDs Quality VTE Deep Vein Thrombosis/Pulmonary Embolism Present on Admission: No
--- NOTE | 2023-06-12 13:45 | PT.IIE ---
Current Diagnoses Unspecified intestinal obstruction, unspecified as to partial versus complete obstruction (06/09/23) Surgery Performed Operation Date: 06/11/23 11:15 Actual Procedures p Exploratory Laparotomy GEN Lysis of adhesions(Not Applicable) - Jolly Kan MD Physical Therapy Inpatient Evaluation/Re-Eval M1 PT/OT-IP Prior Functional Status Start: 06/12/23 14:13 Freq: NEEDED Status: Active Protocol: Document 06/12/23 14:14 AB (Rec: 06/12/23 14:35 [id number]) Medical Review Prior Functional Status Medical History Reviewed Yes Communication Pt is able to communicate all needs. Mobility and Gait IND Activities of Daily Living and IADL's IND with all ADLs and IADLs Prior Functional Level (Other details) Works 4x/week as a contractor. Social History Household Members spouse,family Living Arrangements House Number of Floors (Floors) One Floor Number of Stairs To Enter/Railing? 2 MERNA without hand rails Home Environment Standard Height Toilet,Walk in Shower Home Equipment Shower Seat without Backrest Employment Status [employer] Employed Additional Social History Comment Pt reports his can assist hime 21/04 if needed. Does not own any assistive equipment. M2 PT-IP Current Condition Start: 06/12/23 14:13 Freq: NEEDED Status: Active Protocol: Document 06/12/23 14:14 AB (Rec: 06/12/23 14:35 [id number]) Physical Therapy Current Condition Current Condition Evaluation Date 06/12/23 Treatment Diagnosis s/p exploratory laparotomy with lysis of adhesions Onset Date 06/11/23 M3 PT-IP Subjective Start: 06/12/23 14:13 Freq: NEEDED Status: Active Protocol: Document 06/12/23 14:14 AB (Rec: 06/12/23 14:35 [id number]) Subjective Physical Therapy Visit Type Type Initial Evaluation Visit Start Time 13:45 Visit Stop Time 14:11 Total Visit Minutes 31 Notes Pt presents seated at EOB with all needs met. Number of PIPE FITTER Visits 0 Physical Therapy Visit Comments Patient Comments The pt reports he is in a lot of abdominal pain. He reports feeling like his abdomen is going to tear apart at his incision. However he is agreeable to PT eval this afternoon. Patient Goals To improve his pain symptoms. Therapy Pain Assessment Pain When Pain Assessed At Rest Pain Present Pain Present Pain Reported Location Abdomen Description Pulling,Sharp,Tightness Pain Behaviors Facial Grimacing,Guarding, Holding Area,Wincing Pain Management Techniques Re-positioning M4 PT-IP Mobility and Gait Start: 06/12/23 14:13 Freq: NEEDED Status: Active Protocol: Document 06/12/23 14:14 AB (Rec: 06/12/23 14:35 AB [id number]) PT-Bed Mobility Assessment Rolling Type of Rolling Log Rolling,Bilateral Level of Assist Independent Supine to Sit Supine to Sit Independent Sit to Supine Sit to Supine Independent Scooting Scooting to Edge of Bed Independent Scooting Up and Down in Bed Independent PT-Transfer Assessment Sit to and From Stand Sit to and from Stand Independent Equipment Transfer Assistive Device Gait Belt Transfers Transfer Destination Bed Transfer Technique Stand Step Pivot Transfer Ability Level of Assist Independent,Use of Upper Extremities Gait Assessment Gait Gait Assistance Required: Independent Distance (Feet) 250 Assistive Devices Assistive Device Gait Belt Gait Deviations General Gait Pattern Decreased Stride Length Factors Limiting Gait Function Factors Limiting Gait Function Decreased Activity Tolerance, Pain Comments Gait Comments Gait deviations due to pain with exertion. Stair Climbing Assessment Evaluation Level of Assist On Stairs Independent Devices Stair Climbing Assistive Devices Right Railing Technique/Endurance Stair Climbing Direction Ascend and Descend Stair Climbing Technique Step Over Step Number of Steps Climbed 3 Query Text: Stair Climbing Set # Repetitions (reps) 1 PT-Balance Assessment Sitting Balance and Reactions Static Sitting Balance Ability Normal Dynamic Sitting Balance Ability Normal Standing Balance and Reactions Static Standing Balance Ability Normal Dynamic Standing Balance Ability Normal M5 PT-IP Objective Assessments Start: 06/12/23 14:13 Freq: NEEDED Status: Active Protocol: Document 06/12/23 14:14 AB (Rec: 06/12/23 14:35 AB [id number]) Orientation Orientation/Cognition Level of Alertness Alert Orientation Name,Date,Place,Situation Language Function Ability No Deficits Noted Safety Awareness Understands Safety Issues Memory Description No Deficits Noted Gross Range of Motion Upper Extremity ROM Impairments Not assessed due to pain. Lower Extremity ROM Assessment Within Functional Limits Strength Upper Extremity Strength Assessment Within Functional Limits Lower Extremity Strength Assessment Within Functional Limits M6 PT-IP Treatment Start: 06/12/23 14:13 Freq: NEEDED Status: Active Protocol: Document 06/12/23 14:14 AB (Rec: 06/12/23 14:35 AB [id number]) Physical Therapy Treatment Education Education Provided Safety Brace Education Patient Other Treatments Other Treatment Performed At end of session, the pt requested to return to bed. He was helped to get comfortable in bed, and was handed off to RN with all needs met. M7 PT-IP Assessment and Plan Start: 06/12/23 14:13 Freq: NEEDED Status: Active Protocol: Document 06/12/23 14:14 AB (Rec: 06/12/23 14:35 AB [id number]) PT Summary Assessment and Plan Potential Rehabilitation Potential Excellent Status of Condition at Evaluation Stable Summary Impairments Pain,Activity Tolerance Assessment Summary Ricki Stewart is a 68 year old male patient who is s/p abdominal surgery (exploratory laparotomy with lysis of adhesion) performed on 06/11/23 . During today's PT evaluation , the pt demonstrates independence with all functional mobility necessary to return to home safely. However, he is limited by his pain levels which are causing decreased strength, endurance and activity tolerance. No significant deviations are noted throughout the evaluation. The pt was educated on performing log roll technique to perform supine<>sit and sit<>supine, breathing techniques and using his extremities to assist with mobility all to decrease his pain when performing these activities. Based on his current level of function, he does not require skilled PT at this time, however this is subject to change if he has a decline in status that would necessitate therapy services. Goals Bed Mobility Goal Independent Transfer Goal Independent Gait Goal Independent Gait Distance 500 Days to Meet Goals 10 Frequency of Treatment Frequency Of Treatment Discharge Treatment Plan Physical Therapy Treatment Plan Bed Mobility Training,Gait Training,Therapeutic Exercise, Post Op Education,Discharge Planning,Hot or Cold Pack, Neuromuscular Re-ed Other Recommendations and Next Treatment PT only if status changes. Focus Precautions Abdominal Surgery Precautions Log Roll,Lifting Restrictions, Gait Belt above Incisional Area Recommendations To Nursing Amount of Assist Needed Independent Discharge Recommendations PT Discharge Recommendations Home,Home with Assistance Transportation Needs at Discharge Private Vehicle
[2023-06-12] MEDS: ONDANSETRON 4 MG/2 ML INJ IV (14:09)
--- NOTE | 2023-06-12 14:29 | PM.PN.1 ---
Subjective Subjective Date Patient Seen: 06/12/23 Time Patient Seen: 08:00 Interval history: His pain is moderately well controlled. He is no longer in atrial fibrillation. He has no chest pain, shortness of breath, palpitations. Exam Vital Signs (past 8 hours): - 06/12/23 08:00 06/12/23 09:00 06/12/23 12:00 Temperature 97.9 F 98.2 F Pulse Rate 81 77 Respiratory Rate 18 18 Blood Pressure 128/75 144/76 H Pulse Oximetry 94 93 Oxygen Delivery Method Room Air Oxygen Delivery Method Room Air Oxygen Flow Rate 0 Narrative Exam Narrative: GEN: NG tube in place HEENT: moist mucous membranes, PERRL NECK: trachea midline, no JVD CV: regular rate and rhythm, no murmurs PULM: clear bilaterally ABD: distended, tender, no organomegaly EXT: warm and well perfused with no edema NEURO: awake, alert, oriented, no focal deficits Objective Labs 06/12/23 06:25 06/12/23 06:25 Labs: Laboratory Results - last 24 hr 06/12/23 06/12/23 06/12/23 06:25 06:25 06:25 WBC 8.8 RBC 3.84 L Hgb 12.8 L Hct 37.4 L MCV 97.5 MCH 33.3 MCHC 34.2 RDW 14.7 Plt Count 227 Neut % (Auto) 77.0 H Lymph % (Auto) 11.5 L [place] % (Auto) 11.4 Eos % (Auto) 0.1 L Baso % (Auto) 0.0 Neut # (Auto) 6700 Lymph # (Auto) 1000 L [place] # (Auto) 1000 H Eos # (Auto) 0 Baso # (Auto) 0 Sodium 133 L Potassium 3.8 Chloride 98 Carbon Dioxide 29 BUN 18 Creatinine 1.08 Estimated GFR > 60 BUN/Creatinine Ratio 16.7 Glucose 118 H Calcium 8.5 Magnesium 1.8 PFSH Social History household members: spouse and family Smoking Status: Former smoker alcohol intake: current Assessment & Plan Assessment & Plan narrative: # new onset paroxysmal atrial fibrillation -overnight on 06/08-06/09 at 3:00 a.m. patient had transient atrial fibrillation, he then returned in NSR -CHADS2 Vasc of 1 indicating baby aspirin daily -his BP is high but likely due to pain, he denies history of HTN. But if he in fact has HTN his score would be 2 indicating need for anticoag. PCP will need to f/u on this. -patient may start baby aspirin once SBO resolves -suggest also starting low-dose beta shanthi for rate control at 12.5mg of metoprolol succinate daily -should limit his alcohol intake, counseling given -hold lovenox # SBO 2/2 internal abdominal adhesion -s/p exlap and lysis of adhesions -NG tube in place -advance diet per surgery # PABLO, resolved -creatinine 1.4 on admission and improved to 1 with IVF -Cr lenore again to 2, renal US normal -Cr now normalized with IVF # elevated BG -A1c 4.8% # hypothyroidism -can hold synthroid and liothyronine while NPO -TSH normal Medicine will SIGN OFF. Recommend discharge with baby aspirin 81mg daily for CVA prevention for afib if not contraindication. Recommend metoprolol succinate XL 25mg once daily. Follow up with PCP for continued following. Quality VTE Deep Vein Thrombosis/Pulmonary Embolism Present on Admission: No
--- NOTE | 2023-06-12 17:05 | PC.NURSE ---
Day shift: Patient is NPO, NG tube remains on LIS. MD Lopez okayed trialing pt's NG tube off of suction this afternoon, patient ambulated in room for 30 min, afterwards pt experienced increased pain and nausea, returned NG tube onto LIS and pt stated that he felt much more comfortable. Pain not adequately controlled this afternoon w/ ordered pain medications; notified MD Lopez and 1mg IV Dilaudid Q1hrs was ordered and given w/ better relief. NG tube output this shift is 350 cc of dark, green/brown fluid.
[2023-06-13] VITALS: BP 153/76; PULSE 88; RESP 14; TEMP 37.1; O2SAT 93
[2023-06-13] MEDS: DEXTROSE IV ×3 (01:48→18:54)
[2023-06-13] MEDS: [UNRECOGNIZED DRUG - OTHER] IV ×3 (01:48→18:54)
[2023-06-13] MEDS: HYDROMORPHONE 1 MG INJ IV ×7 (01:51→18:36)
[2023-06-13 04:00] VITALS: BP 139/73; PULSE 86; RESP 13; TEMP 37.1; O2SAT 98
[2023-06-13] MEDS: diazePAM 10 MG/2 ML SYRINGE 2 MG IV ×3 (05:39→23:44)
[2023-06-13 06:29] LABS: Add Manual Diff / Slide Review NO; Basophils Absolute Auto 0 /uL (0-100); Basophils Percent Auto 0.1 % (0-2); Eosinophils Absolute Auto 0 /uL (0-450); Eosinophils Percent Auto 0.7 % (2-4); Hematocrit 36.6 % (41-53); Hemoglobin 12.6 g/dL (13.5-17.5); Lymphocytes Absolute Auto 700 /uL (1100-4500); Lymphocytes Percent Auto 10.1 % (25-40); Mean Corpuscular HGB Conc 34.3 % (30-36); Mean Corpuscular Hemoglobin 33.2 PG (26-34); Mean Corpuscular Volume 96.9 fL (80-100); Monocytes Absolute Auto 900 /uL (0-900); Monocytes Percent Auto 12.7 % (3-14); Neutrophils Absolute Auto 5200 /uL (1500-7000); Neutrophils Percent Auto 76.4 % (50-75); Platelet Count 224 X10^3/uL (150-400); Red Blood Cell Count 3.78 X10^6/uL (4.5-5.9); Red Cell Distribution Width 13.9 % (11.6-14.8); White Blood Cell Count 6.8 X10^3/uL (4.5-11.0)
[2023-06-13 06:41] LABS: BUN Creatinine Ratio 12.1 (6-22); Blood Urea Nitrogen 12 mg/dL (9-20); Calcium 8.6 mg/dL (8.4-10.2); Carbon Dioxide 32 mmol/L (22-32); Chloride 97 mmol/L (98-107); Estimated Glomerular Filt Rate > 60 mL/min (>60); Glucose 113 mg/dL (80-110); HEMOLYSIS < 15 (0-50); Potassium 3.3 mmol/L (3.4-5.1); Sodium 132 mmol/L (137-145)
[2023-06-13 06:42] LABS: Magnesium 1.7 mg/dL (1.6-2.3)
[2023-06-13 08:00] VITALS: BP 131/78; PULSE 90; RESP 16; TEMP 36.2; O2SAT 98
[2023-06-13] MEDS: PANTOPRAZOLE 40 MG VIAL IV (08:21)
[2023-06-13] MEDS: METOCLOPRAMIDE 10 MG/2 ML INJ 5 MG IV ×2 (08:21→14:59)
[2023-06-13] MEDS: ENOXAPARIN 40 MG/0.4 ML SYRINGE SUBCUT (08:22)
[2023-06-13] MEDS: POTASSIUM CHLORIDE IN WATER 10 MEQ/100 ML PIGGYBACK 100 MEQ IV ×4 (10:36→13:59)
[2023-06-13 12:00] VITALS: BP 134/75; PULSE 88; RESP 18; O2SAT 97
[2023-06-13 16:00] VITALS: BP 122/71; PULSE 94; RESP 18; O2SAT 92
--- NOTE | 2023-06-13 17:19 | PM.PNPO.1 ---
Subjective Subjective Date Patient Seen: 06/13/23 Time Patient Seen: 17:20 Interval history: No return of bowel function yet. Continues to have bilious NG tube output. Exam Vital Signs (past 8 hours): - 06/13/23 12:00 06/13/23 16:00 Pulse Rate 88 94 H Respiratory Rate 18 18 Blood Pressure 134/75 122/71 Pulse Oximetry 97 92 Oxygen Delivery Method Room Air Oxygen Flow Rate 0 Narrative Exam Narrative: General adult man alert oriented no distress Chest nonlabored respiration Abdomen appropriately tender to palpation moderate distention. Nasogastric tube with bilious output. Objective Labs 06/13/23 05:55 06/13/23 05:55 Labs: Laboratory Results - last 24 hr 06/13/23 06/13/23 06/13/23 05:55 05:55 05:55 WBC 6.8 RBC 3.78 L Hgb 12.6 L Hct 36.6 L MCV 96.9 MCH 33.2 MCHC 34.3 RDW 13.9 Plt Count 224 Neut % (Auto) 76.4 H Lymph % (Auto) 10.1 L [place] % (Auto) 12.7 Eos % (Auto) 0.7 L Baso % (Auto) 0.1 Neut # (Auto) 5200 Lymph # (Auto) 700 L [place] # (Auto) 900 Eos # (Auto) 0 Baso # (Auto) 0 Sodium 132 L Potassium 3.3 L Chloride 97 L Carbon Dioxide 32 BUN 12 Creatinine 0.99 Estimated GFR > 60 BUN/Creatinine Ratio 12.1 Glucose 113 H Calcium 8.6 Magnesium 1.7 PFSH Social History household members: spouse and family Smoking Status: Former smoker alcohol intake: current Assessment & Plan Post-op Postoperative Procedures: Procedures Operation Date: 06/11/23 11:15 Actual Procedure Side Surgeon p Exploratory Laparotomy GEN Lysis of adhesions Not Applicable Jolly Kan MD Postoperative status narrative: 68-year-old man postoperative day 2 status post ex lap lysis of adhesions for a small-bowel obstruction. Continues to have a postoperative ileus as expected. Continue nasogastric tube and IV fluids until return of bowel function. Quality VTE Deep Vein Thrombosis/Pulmonary Embolism Present on Admission: No
[2023-06-13 19:25] VITALS: BP 116/74; PULSE 92; RESP 16; TEMP 37.2; O2SAT 93
[2023-06-13] MEDS: HYDROMORPHONE 0.5 MG INJ IV ×2 (20:29→23:27)
[2023-06-14 00:32] VITALS: BP 145/83; PULSE 89; RESP 18; TEMP 37.3; O2SAT 94
[2023-06-14] MEDS: HYDROMORPHONE 0.5 MG INJ IV ×7 (02:26→16:23)
[2023-06-14] MEDS: [UNRECOGNIZED DRUG - OTHER] IV ×2 (02:30→09:43)
[2023-06-14] MEDS: DEXTROSE IV ×2 (02:30→09:43)
[2023-06-14 06:14] VITALS: BP 153/85; PULSE 98; RESP 18; TEMP 37.2; O2SAT 6
[2023-06-14 06:14] LABS: Add Manual Diff / Slide Review NO; Basophils Absolute Auto 0 /uL (0-100); Basophils Percent Auto 0.2 % (0-2); Eosinophils Absolute Auto 100 /uL (0-450); Eosinophils Percent Auto 1.2 % (2-4); Hematocrit 36.9 % (41-53); Hemoglobin 12.7 g/dL (13.5-17.5); Lymphocytes Absolute Auto 600 /uL (1100-4500); Lymphocytes Percent Auto 10.1 % (25-40); Mean Corpuscular HGB Conc 34.3 % (30-36); Mean Corpuscular Hemoglobin 33.1 PG (26-34); Mean Corpuscular Volume 96.5 fL (80-100); Monocytes Absolute Auto 900 /uL (0-900); Neutrophils Absolute Auto 4000 /uL (1500-7000); Neutrophils Percent Auto 72.5 % (50-75); Platelet Count 243 X10^3/uL (150-400); Red Blood Cell Count 3.82 X10^6/uL (4.5-5.9); Red Cell Distribution Width 13.5 % (11.6-14.8); White Blood Cell Count 5.5 X10^3/uL (4.5-11.0)
[2023-06-14 06:20] LABS: BUN Creatinine Ratio 10.1 (6-22); Blood Urea Nitrogen 10 mg/dL (9-20); Calcium 8.5 mg/dL (8.4-10.2); Carbon Dioxide 29 mmol/L (22-32); Chloride 98 mmol/L (98-107); Estimated Glomerular Filt Rate > 60 mL/min (>60); Glucose 124 mg/dL (80-110); HEMOLYSIS < 15 (0-50); Potassium 3.3 mmol/L (3.4-5.1); Sodium 133 mmol/L (137-145)
[2023-06-14 06:22] LABS: Magnesium 1.7 mg/dL (1.6-2.3)
[2023-06-14] MEDS: PANTOPRAZOLE 40 MG VIAL IV (08:03)
[2023-06-14] MEDS: ENOXAPARIN 40 MG/0.4 ML SYRINGE SUBCUT (08:03)
[2023-06-14] MEDS: ONDANSETRON 4 MG/2 ML INJ IV (08:03)
[2023-06-14 08:25] VITALS: BP 150/80; PULSE 86; RESP 16; TEMP 36.4; O2SAT 95
[2023-06-14] MEDS: MAGNESIUM SULFATE 2 GM/50 ML PIGGYBACK IV (09:31)
--- NOTE | 2023-06-14 11:00 | CM.DPNOTE ---
DCP Note Patient discussed in multidisciplinary rounds. Patient has developed a post operative ileus which is delaying return of bowel function. Patient will likely remain here at least an additional 24-48 hrs Anticipate patient will return home upon discharge. CM team will continue to follow closely in case any DC needs or concerns arise JW
[2023-06-14] MEDS: POTASSIUM CHLORIDE IN WATER 10 MEQ/100 ML PIGGYBACK 100 MEQ IV ×4 (11:14→14:14)
[2023-06-14 12:00] VITALS: BP 143/81; PULSE 84; RESP 17; TEMP 36.6; O2SAT 93
[2023-06-14] MEDS: TETRACAINE/BENZOCAINE/BUTAMBEN (CETACAINE) BOTTLE 1 SPRAY TOP (15:34)
[2023-06-14 16:00] VITALS: BP 130/75; PULSE 92; RESP 16; TEMP 36.6; O2SAT 95
[2023-06-14] MEDS: KCL 20 MEQ IN NS 1,000 ML 100 MEQ IV (16:32)
--- NOTE | 2023-06-14 17:10 | PM.PNPO.1 ---
Subjective Subjective Date Patient Seen: 06/14/23 Time Patient Seen: 15:00 Interval history: Patient still with NG tube in place. Still complaining of occasional nausea especially when getting Dilaudid right afterwards. He was walking around in the halls a lot yesterday but his was at bedside says he is more tired today and not walking as well. He is still having pain in his stomach especially after the Dilaudid with the nausea. He does say his main complaint is the pain in his throat from the NG tube. Exam Vital Signs (past 8 hours): - 06/14/23 12:00 Temperature 97.9 F Pulse Rate 84 Respiratory Rate 17 Blood Pressure 143/81 H Pulse Oximetry 93 Oxygen Flow Rate 0 Oxygen Delivery Method Room Air Oxygen Flow Rate 0 Objective ECG Impression: His abdomen is slightly distended mildly tender but not local localized except for around the incision. The incision is clean dry and intact Labs 06/14/23 05:55 06/14/23 05:55 Labs: Laboratory Results - last 24 hr 06/14/23 06/14/23 06/14/23 05:55 05:55 05:55 WBC 5.5 RBC 3.82 L Hgb 12.7 L Hct 36.9 L MCV 96.5 MCH 33.1 MCHC 34.3 RDW 13.5 Plt Count 243 Neut % (Auto) 72.5 Lymph % (Auto) 10.1 L [place] % (Auto) 16.0 H Eos % (Auto) 1.2 L Baso % (Auto) 0.2 Neut # (Auto) 4000 Lymph # (Auto) 600 L [place] # (Auto) 900 Eos # (Auto) 100 Baso # (Auto) 0 Sodium 133 L Potassium 3.3 L Chloride 98 Carbon Dioxide 29 BUN 10 Creatinine 0.99 Estimated GFR > 60 BUN/Creatinine Ratio 10.1 Glucose 124 H Calcium 8.5 Magnesium 1.7 PFSH Social History household members: spouse and family Smoking Status: Former smoker alcohol intake: current Assessment & Plan Post-op Postoperative Procedures: Procedures Operation Date: 06/11/23 11:15 Actual Procedure Side Surgeon p Exploratory Laparotomy GEN Lysis of adhesions Not Applicable Jolly Kan MD Postoperative day: 3 Postoperative status: post-op ileus Postoperative status narrative: He continues to have an ileus with NG tube output and abdominal distention nausea. I think he is still within the time of where return of bowel function is being waited for. He has hypokalemia which is being corrected. IV fluids going to avoid dehydration and DVT prophylaxis with Lovenox. We will continue to observe another day and if any worsening of symptoms or failure to improve in the next day or 2; May consider repeating CT scan. Quality VTE Deep Vein Thrombosis/Pulmonary Embolism Present on Admission: No
[2023-06-14] MEDS: HYDROMORPHONE 1 MG INJ IV ×2 (17:58→20:49)
[2023-06-14 20:35] VITALS: BP 140/80; PULSE 95; RESP 18; TEMP 36.7; O2SAT 97
[2023-06-14] MEDS: diazePAM 10 MG/2 ML SYRINGE 2 MG IV (23:17)
[2023-06-15] MEDS: HYDROMORPHONE 1 MG INJ IV ×7 (00:25→23:50)
[2023-06-15 01:00] VITALS: BP 140/79; PULSE 90; RESP 18; TEMP 36.1; O2SAT 93
[2023-06-15] MEDS: KCL 20 MEQ IN NS 1,000 ML 100 MEQ IV ×3 (02:38→23:19)
[2023-06-15 05:55] VITALS: BP 127/69; PULSE 82; RESP 18; TEMP 37.1; O2SAT 94
[2023-06-15 08:14] VITALS: BP 138/73; PULSE 83; RESP 16; TEMP 36.1; O2SAT 95
[2023-06-15] MEDS: METOCLOPRAMIDE 10 MG/2 ML INJ 5 MG IV (08:16)
[2023-06-15] MEDS: PANTOPRAZOLE 40 MG VIAL IV (08:24)
[2023-06-15] MEDS: ENOXAPARIN 40 MG/0.4 ML SYRINGE SUBCUT (08:24)
--- NOTE | 2023-06-15 09:50 | PC.NURSE ---
Addendum entered by Pallavi Rendon R.N. 06/15/23 18:52: NG tube removed per MD Baxter's order. see communication order @ 1800. Addendum entered by Pallavi Rendon R.N. 06/15/23 17:35: NG tube clamp trial started at 1000 this morning, pt tolerating well no nausea. Pt states that he is passing small amounts of gas x1, and that his appetite is returning. Will continue to monitor. Original Note: Day shift: Noted bilateral expiratory wheezes in lower lobes and is coughing up small amounts of clear/white sputum, notified Dr Baxter. Educated pt on use of incentive spirometer and deep breathing, pt verbalized understanding. Pt moves independently when OOB, denies chest pain, dizziness, SOB.
[2023-06-15] MEDS: TETRACAINE/BENZOCAINE/BUTAMBEN (CETACAINE) BOTTLE 1 SPRAY TOP ×2 (11:18→15:26)
[2023-06-15 12:00] VITALS: BP 128/77; PULSE 85; RESP 16; TEMP 36.4; O2SAT 94
[2023-06-15 13:59] LABS: Hemoglobin 11.6 g/dL (13.5-17.5); Mean Corpuscular Hemoglobin 33.1 PG (26-34); Mean Corpuscular Volume 97.4 fL (80-100); Platelet Count 267 X10^3/uL (150-400); Red Blood Cell Count 3.49 X10^6/uL (4.5-5.9); Red Cell Distribution Width 13.6 % (11.6-14.8); White Blood Cell Count 5.9 X10^3/uL (4.5-11.0)
[2023-06-15 14:12] LABS: BUN Creatinine Ratio 14.2 (6-22); Blood Urea Nitrogen 15 mg/dL (9-20); Calcium 8.7 mg/dL (8.4-10.2); Carbon Dioxide 29 mmol/L (22-32); Chloride 101 mmol/L (98-107); Estimated Glomerular Filt Rate > 60 mL/min (>60); Glucose 96 mg/dL (80-110); HEMOLYSIS 16 (0-50); Potassium 4.7 mmol/L (3.4-5.1); Sodium 135 mmol/L (137-145)
[2023-06-15 16:00] VITALS: BP 145/78; PULSE 89; RESP 17; TEMP 36.6; O2SAT 96
[2023-06-15] MEDS: diazePAM 10 MG/2 ML SYRINGE 2 MG IV (17:53)
--- NOTE | 2023-06-15 18:13 | PM.PN.1 ---
Subjective Subjective Date Patient Seen: 06/15/23 Time Patient Seen: 12:00 Interval history: Feeling overall better today. Less nauseated. Passing flatus. Tolerating clamp trial since going to the bathroom for 1 hour. Pain relatively well controlled. Exam Vital Signs (past 8 hours): - 06/15/23 12:00 06/15/23 16:00 Temperature 97.6 F 97.9 F Pulse Rate 85 89 Respiratory Rate 16 17 Blood Pressure 128/77 145/78 H Pulse Oximetry 94 96 Oxygen Flow Rate 0 0 Oxygen Delivery Method Room Air Oxygen Flow Rate 0 Const General: cooperative and comfortable HENMT Other: NG tube in place with some gastric output Resp Effort & Inspection: normal respiratory effort and able to speak in complete sentences GI Palpation: soft and tender Other: Appropriately tender. Mild to moderate distention , decreased from yesterday. Objective Labs 06/15/23 13:45 06/15/23 13:45 Labs: Laboratory Results - last 24 hr 06/15/23 06/15/23 13:45 13:45 WBC 5.9 RBC 3.49 L Hgb 11.6 L Hct 34.0 L MCV 97.4 MCH 33.1 MCHC 34.0 RDW 13.6 Plt Count 267 Sodium 135 L Potassium 4.7 D Chloride 101 Carbon Dioxide 29 BUN 15 Creatinine 1.06 Estimated GFR > 60 BUN/Creatinine Ratio 14.2 Glucose 96 Calcium 8.7 PFSH Social History household members: spouse and family Smoking Status: Former smoker alcohol intake: current Assessment & Plan Assessment and plan (1) Small bowel obstruction: Status: Acute Plan Postoperative day 4. Clamp trial today. passing flatus. Hope for ROBF today. dvt ppx. hyponatremia improving - will observe. asymptomatic hypokalemia also resolved. if does well today will d/c NGT and start CLD. Quality VTE Deep Vein Thrombosis/Pulmonary Embolism Present on Admission: No
[2023-06-15 19:48] VITALS: BP 145/80; PULSE 83; RESP 16; TEMP 36.7; O2SAT 96
[2023-06-16 00:13] VITALS: BP 135/70; PULSE 85; RESP 16; TEMP 37.3; O2SAT 94
[2023-06-16 04:45] VITALS: BP 136/76; PULSE 70; RESP 16; TEMP 36.5; O2SAT 98
[2023-06-16] MEDS: HYDROMORPHONE 1 MG INJ IV (05:04)
[2023-06-16 08:00] VITALS: BP 140/70; PULSE 80; RESP 22; TEMP 36.7; O2SAT 96
[2023-06-16] MEDS: ENOXAPARIN 40 MG/0.4 ML SYRINGE SUBCUT (09:31)
[2023-06-16] MEDS: PANTOPRAZOLE 40 MG VIAL IV (09:31)
[2023-06-16] MEDS: KCL 20 MEQ IN NS 1,000 ML 100 MEQ IV (09:32)
[2023-06-16] MEDS: HYDROCODONE/ACET 5/325 TABLET 2 TAB PO (09:43)
[2023-06-16 12:00] VITALS: BP 138/73; PULSE 83; RESP 20; TEMP 36.6; O2SAT 94
--- NOTE | 2023-06-16 16:06 | PC.NURSE ---
Patient on a CLD this morning w/ no episodes of nausea/vomiting, had several loose stools throughout the day, minimal pain adequately controlled w/ ordered PO meds. Spoke to MD Santiago at 1500 who suggested for the patient to try eating some food and see how he tolerates it. Patient ate 1 whole banana and some applesauce, tolerated well with no nausea. Discharge orders obtained, education given to patient and spouse and informed patient to schedule a follow-up with [facility]. Patient/family verbalized understanding, all questions answered. All belongings are with patient, IV removed. Escorted patient via wheelchair to private vehicle.
--- NOTE | 2023-07-15 08:12 | PM.DS.1 ---
History of Present Illness History of Present Illness Date Patient Seen: 07/16/23 Chief complaint: Poss food poisoning Narrative: Seen for abdominal pain, found to have SBO on CT scan that I also reviewed. No clinical signs of ischemic bowel. Admitted for bowel rest. Last evening his nurse noted he was in Afib via tele. Spontaneously converted to Normal sinus before 12 lead EKG was done. No passing of gas, abdominal pain is focal and in the area that is seen on CT. Nausea but not emesis. Discharge Providers Provider Date of admission: 06/09/23 00:35 Discharge Date: 07/16/23 Primary care physician: Jorden Hurtado ND Consults: 06/09/23 07:37 Consult to Physician Routine Comment: Consulting Provider: Arnie Seaman Reason for consultation: Afib, new dx Has provider been notified: No 06/12/23 09:28 Consult to Physical Therapy Evaluate & Treat Comment: Physician Instructions: Evaluate and Treat Discharge provider: Jolly Kan MD Summary Hospital Course Discharge Diagnosis: small bowel obstruction Hospital Course: Bowel rest, gastrografin challenged that failed. Xlap w AURE Status at Discharge Cognitive/behavioral status at discharge: at baseline, oriented Functional status at discharge: independent ambulation Overall status at discharge: patient is progressing back to baseline Time Spent with Patient Time spent: Less than 30 minutes Exam Vital Signs (past 8 hours): Oxygen Delivery Method Room Air Oxygen Flow Rate 0 Narrative Exam Narrative: abdomen benign, wounds intact, no complications. 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 S/P Xlap w AURE Plan of Treatment: home no heavy lifting for 2-4 wks post op check 2-4 wks Discharge Plan Discharge Plan Patient Disposition: Home Provider Discharge Comment: No lifting greater than 20 lb for 2 weeks. Leave the Steri-Strips on until they start to peel off in 1-2 weeks. Contact [facility] for a postop visit. Discharge orders & Medications Prescriptions: Continued ascorbic acid (vitamin C) 500 MG tablet 500 mg PO DAILY Qty: 0 testosterone [Testim] 50 mg/5 gram (1 %) gel See Rx Instructions .ROUTE .COMPLEX Qty: 0 Patient Comments: Patient reports applies 4 clicks Rx Instructions: Apply cream once daily vitamin B complex [B Complex-Vitamin B12] 1 EACH tablet 1 tab PO DAILY Qty: 0 rutin 500 MG tablet 500 mg PO DAILY Qty: 0 omega 5-bmr-iro-fish oil [Fish Oil] 1,000 MG capsule 1,000 mg PO DAILY Qty: 0 coQ10 (ubiquinol) 100 mg capsule 100 mg PO DAILY Qty: 0 liothyronine 5 mcg tablet 5 mcg PO DAILY levothyroxine 75 mcg tablet 75 mcg PO DAILY cholecalciferol (vitamin D3) 125 mcg (5,000 unit) Capsule 125 mcg PO DAILY Follow up/Referrals: Jorden Hurtado ARNP [Primary Care Provider] - Visit Report/Discharge Packet Instructions: Intestinal Pseudo-obstruction, Ileus, DI for Ileus, DI for Prescription Opioid Use Stand Alone Forms: Patient Portal/API, Stroke Signs & Symptoms Discharge Data Primary Care Provider: Jorden Hurtado Discharges patient from system. Discharge Date/Time: 06/16/23 14:20 Quality VTE Deep Vein Thrombosis/Pulmonary Embolism Present on Admission: No
== END 2023-06-16 14:20 | disposition home or self-care (01) | DRG 336 ==
LOC: ED 06-09 00:27 → AC 06-09 00:41
PROVIDERS: Student in an Organized Health Care Education/Training Program; Surgery; Admitting Provider Surgery; Emergency Provider Emergency Medicine; Family Provider Registered Nurse; PCP Registered Nurse; Referring Provider Emergency Medicine; Visit Provider Surgery
PROC: 0DNA0ZZ Release Jejunum, Open Approach (ICD-10-PCS; CPT 49000; principal; 2023-06-11 11:15)
DX: K56.50 Intestinal adhesions [bands], unspecified as to partial versus complete obstruction (principal); K91.89 Other postprocedural complications and disorders of digestive system; N17.9 Acute kidney failure, unspecified; I48.0 Paroxysmal atrial fibrillation; E03.9 Hypothyroidism, unspecified; E87.6 Hypokalemia; K56.7 Ileus, unspecified; Y83.8 Other surgical procedures as the cause of abnormal reaction of the patient, or of later complication, without mention of misadventure at the time of the procedure
CPT/HCPCS: 36415; 44005; 71045; 74018; 74176; 74177; 76770; 80048; 80053; 81001; 82962; 83036; 83605; 83690; 83735; 84145; 84443; 85025; 85027; 87086; 93005; 93010; 96361; 96374; 97161; 99232; 99284; C9113; J0330; J0690; J1100; J1170; J1650; J1885; J2270; J2405; J2704; J2765; J3010; J3360; J3475; J7050; Q9967

== ENCOUNTER 2024-05-17 10:03 | Emergency (ER) | payer OTHER, SELFPAY ==
[2023-06-09 01:25] VITALS: BMI 24.4
[2024-05-17] VITALS (35 sets, daily range): BP systolic 103–172; BP diastolic 55–102; PULSE 59–85; RESP 9–22; TEMP 36.7; O2SAT 90–100; BMI 25.0
--- NOTE | 2024-05-17 10:09 | DI.RAD.S_ITS ---
PROCEDURE: XR CHEST 1V INDICATIONS: chest pain TECHNIQUE: One view of the chest was acquired. COMPARISON: [facility], CR, XR CHEST 1V, 06/10/2023, 2:22. [facility], CR, XR CHEST 1V, 06/09/2023, 7:45. FINDINGS: Surgical changes and devices: None. Lungs and pleura: Lungs are clear. No pleural effusions or pneumothorax. Mediastinum: Mediastinal contours appear normal. Heart size is normal. Bones and chest wall: No suspicious bony lesions. Overlying soft tissues appear unremarkable. IMPRESSION: No acute cardiopulmonary abnormality is seen. Dictated by: Georges Lechuga M.D. on 05/17/2024 at 11:06 Approved by: Georges Lechuga M.D. on 05/17/2024 at 11:06
--- NOTE | 2024-05-17 10:10 | EKG_ITS ---
[address] [address] Test Date: 2024-05-17 Pat Name: Ricki Stewart Department: Room: Gender: Male [employer] Operator: MARII : [id number] Requested By: Order Number: [id number] Reading MD: Herve Wilks Measurements Intervals [place] Rate: 56 P: 21 NE: 186 QRS: 55 QRSD: 98 T: 38 QT: 400 QTc: 386 Interpretive Statements Sinus bradycardia Electronically Signed On 05-17-2024 14:29:09 PDT by Herve Wilks
[2024-05-17 10:26] LABS: Add Manual Diff / Slide Review NO; Basophils Absolute Auto 0 /uL (0-100); Basophils Percent Auto 0.4 % (0-2); Eosinophils Absolute Auto 100 /uL (0-450); Eosinophils Percent Auto 0.8 % (2-4); Hematocrit 42.7 % (41-53); Hemoglobin 14.2 g/dL (13.5-17.5); Lymphocytes Absolute Auto 1200 /uL (1100-4500); Lymphocytes Percent Auto 16.1 % (25-40); Mean Corpuscular HGB Conc 33.2 % (30-36); Mean Corpuscular Hemoglobin 32.2 PG (26-34); Monocytes Absolute Auto 400 /uL (0-900); Monocytes Percent Auto 6.3 % (3-14); Neutrophils Absolute Auto 5500 /uL (1500-7000); Neutrophils Percent Auto 76.4 % (50-75); Platelet Count 306 X10^3/uL (150-400); Red Cell Distribution Width 13.7 % (11.6-14.8); White Blood Cell Count 7.2 X10^3/uL (4.5-11.0)
--- NOTE | 2024-05-17 10:29 | ED_ITS ---
HPI - Syncope General Chief Complaint: Syncope Stated Complaint: syncope Time Seen by Provider: 05/17/24 10:28 Source: patient and EMS Mode of arrival: EMS Limitations: no limitations History of Present Illness HPI narrative: 69-year-old male with home gym exercise routine, did pushups this morning, then was running in place on a small indoor trampoline device that he is used for quite some time, about 5 minutes into the running part of his regimen he started feeling short of breath, stepped off of the trampoline and walked toward the door, then woke up on the floor, had abrasion to his forehead. His fall was unwitnessed but would have been from ground level, no stairs in the area, not aware that he would tripped over any gym equipment. He did not recall any antecedent chest discomfort or shaking, no history of seizures, does not take blood thinner medications. The thud from the fall apparently was heard by family member who responded within seconds, found patient to be lying on the floor and assisted to sitting position then standing, arrival by EMS, no problems in route, normal vitals, normal blood sugar. No seizure activity during transport. He denies any weakness to his face arm or leg. He does have some posterior neck pain after the fall. He denies pain to his upper mid and lower back. He denies pain to upper extremities and lower extremities. He has no other facial injuries than the small abrasion to the forehead. No recent black or red stools. No recent diarrhea. No recent cough or nonexertional shortness of breath or febrile illness. Related Data Home Medications Medication Instructions Recorded Confirmed ascorbic acid (vitamin C) 500 mg 500 mg PO DAILY ##0 08/29/17 02/25/24 tablet coQ10 (ubiquinol) 100 mg capsule 100 mg PO DAILY ##0 08/29/17 02/25/24 omega 9-kpm-owt-fish oil 1,000 mg 1,000 mg PO DAILY ##0 08/29/17 02/25/24 (120 mg-180 mg) capsule (Fish Oil) rutin 500 mg tablet 500 mg PO DAILY ##0 08/29/17 02/25/24 testosterone 50 mg/5 gram (1 %) See Rx Instructions .Route 08/29/17 02/25/24 transdermal gel (Testim) .COMPLEX ##0 vitamin B complex (B 1 tab PO DAILY ##0 08/29/17 02/25/24 Complex-Vitamin B12 tablet) cholecalciferol (vitamin D3) 125 125 mcg PO DAILY 06/09/23 02/25/24 mcg (5,000 unit) capsule levothyroxine 75 mcg tablet 75 mcg PO DAILY 06/09/23 02/25/24 liothyronine 5 mcg tablet 5 mcg PO DAILY 06/09/23 02/25/24 Previous Rx's Medication Instructions Recorded tamsulosin 0.4 mg capsule 0.4 mg PO BEDTIME #90 caps 02/25/24 Allergies Allergy/AdvReac Type Severity Reaction Status Date / Time gluten [GLUTEN] Allergy Mild intolerant Verified 06/26/23 14:27 Review of Systems Review of Systems Narrative: see HPI Patient History Medical History (Updated 05/17/24 @ 14:19 by Chirag Harper MD) Peyronie's disease Incomplete bladder emptying Elevated PSA BPH w urinary obs/LUTS Bowel obstruction Social History marital status: number of children: 4 household members: spouse and family occupational status: previously employed Previous occupational history: [employer] Smoking Status: Former smoker alcohol intake: current caffeine: Yes Type(s) of exercise: aerobic and weight lifting frequency: 3-4 times per week Smoking Status: Former smoker alcohol intake frequency: a few times a week Substance Use Type: does not use Exam Narrative Exam Narrative: GENERAL: Well-developed patient, in mild distress. HEAD: Vertical 1 cm parallel nonsuturable linear abrasions mid forehead at about the scalp line EYES: Pupils equal round and reactive. Extraocular motions intact. No scleral icterus. No injection or drainage. ENT: Nose without bleeding, purulent drainage. Throat without erythema, tonsillar hypertrophy or exudate. Airway patent. NECK: Trachea midline. Non tender midline or paraspinous musculature, normal range of motion CARDIOVASCULAR: Regular rate and rhythm without murmurs, gallops, or rubs. RESPIRATORY: Clear to auscultation. Breath sounds equal bilaterally. No wheezes, rales, or rhonchi. GASTROINTESTINAL: Abdomen soft, non-tender, nondistended. EXTREMITIES: No edema or joint tenderness. Small abrasion over the left AC, no significant tenderness otherwise, no step-off, no gross deformity of the shoulder, can flex and extend and abduct normally. Remainder of upper extremity exam is and lower extremity exam is unremarkable. BACK: Nontender without deformity or crepitance. No flank tenderness. NEURO: AOx3. Nonfocal neuro exam SKIN: No rash or erythema of visible areas Initial Vital Signs Initial Vital Signs: Vital Signs Temperature 98.0 F 05/17/24 10:06 Pulse Rate 59 L 05/17/24 10:06 Respiratory Rate 18 05/17/24 10:06 Blood Pressure 148/72 H 05/17/24 10:06 Pulse Oximetry 100 05/17/24 10:06 Oxygen Delivery Method Room Air 05/17/24 10:06 Course Orders Ordered: ED Orders 05/17/24 10:28 CT head/brain wo con Stat 05/17/24 10:29 CT cervical spine wo con Stat 05/17/24 13:27 Creatinine & eGFR Stat Trop I [Troponin I] Stat Discontinued Medications Aspirin (Aspirin 81 Mg Chew Tab) 324 mg PO NOW ONE Stop: 05/17/24 10:10 Last Admin: 05/17/24 10:30 Dose: Not Given Documented By: LOBO Bacitracin (Bacitracin Oint 0.9 Gm Pckt) 3 applic TOP NOW ONE Stop: 05/17/24 12:00 Last Admin: 05/17/24 12:13 Dose: 3 applic Documented By: LOBO Sodium Chloride (Normal Saline 0.9%) 1,000 mls @ 1,000 mls/hr IV BOLUS ONE Stop: 05/17/24 12:42 Last Infusion: 05/17/24 13:12 Dose: Infused Documented By: [facility] Admin: 05/17/24 12:13 Dose: 1,000 mls/hr Documented By: LOBO Vital Signs Vital signs: Vital Signs - 8 hr 05/17/24 11:28 05/17/24 11:28 05/17/24 11:30 Pulse Rate 61 64 Pulse Rate [Orthostatic Lying] Pulse Rate [Orthostatic Sitting] Pulse Rate [Orthostatic Standing] Respiratory Rate 22 21 Blood Pressure 117/59 L Blood Pressure [Orthostatic Lying] Blood Pressure [Orthostatic Sitting] Blood Pressure [Orthostatic Standing] Pulse Oximetry 99 99 05/17/24 11:31 05/17/24 11:31 05/17/24 11:40 Pulse Rate 60 Pulse Rate [Orthostatic Lying] Pulse Rate [Orthostatic Sitting] Pulse Rate [Orthostatic Standing] Respiratory Rate 15 Blood Pressure 142/56 H 113/60 Blood Pressure [Orthostatic Lying] Blood Pressure [Orthostatic Sitting] Blood Pressure [Orthostatic Standing] Pulse Oximetry 100 05/17/24 11:40 05/17/24 11:50 05/17/24 11:50 Pulse Rate 64 64 Pulse Rate [Orthostatic Lying] Pulse Rate [Orthostatic Sitting] Pulse Rate [Orthostatic Standing] Respiratory Rate 11 L 11 L Blood Pressure 106/67 Blood Pressure [Orthostatic Lying] Blood Pressure [Orthostatic Sitting] Blood Pressure [Orthostatic Standing] Pulse Oximetry 97 99 05/17/24 12:00 05/17/24 12:00 05/17/24 12:10 Pulse Rate 70 Pulse Rate [Orthostatic Lying] Pulse Rate [Orthostatic Sitting] Pulse Rate [Orthostatic Standing] Respiratory Rate 10 L Blood Pressure 110/73 113/55 L Blood Pressure [Orthostatic Lying] Blood Pressure [Orthostatic Sitting] Blood Pressure [Orthostatic Standing] Pulse Oximetry 97 05/17/24 12:10 05/17/24 12:20 05/17/24 12:20 Pulse Rate 70 65 Pulse Rate [Orthostatic Lying] Pulse Rate [Orthostatic Sitting] Pulse Rate [Orthostatic Standing] Respiratory Rate 11 L 21 Blood Pressure 125/70 Blood Pressure [Orthostatic Lying] Blood Pressure [Orthostatic Sitting] Blood Pressure [Orthostatic Standing] Pulse Oximetry 98 98 05/17/24 12:30 05/17/24 12:30 05/17/24 12:40 Pulse Rate 66 71 Pulse Rate [Orthostatic Lying] Pulse Rate [Orthostatic Sitting] Pulse Rate [Orthostatic Standing] Respiratory Rate 16 13 Blood Pressure 116/68 Blood Pressure [Orthostatic Lying] Blood Pressure [Orthostatic Sitting] Blood Pressure [Orthostatic Standing] Pulse Oximetry 98 97 05/17/24 12:40 05/17/24 12:50 05/17/24 12:50 Pulse Rate 66 Pulse Rate [Orthostatic Lying] Pulse Rate [Orthostatic Sitting] Pulse Rate [Orthostatic Standing] Respiratory Rate 16 Blood Pressure 106/68 108/70 Blood Pressure [Orthostatic Lying] Blood Pressure [Orthostatic Sitting] Blood Pressure [Orthostatic Standing] Pulse Oximetry 99 05/17/24 13:00 05/17/24 13:00 05/17/24 13:10 Pulse Rate 67 Pulse Rate [Orthostatic Lying] Pulse Rate [Orthostatic Sitting] Pulse Rate [Orthostatic Standing] Respiratory Rate 13 Blood Pressure 122/72 116/71 Blood Pressure [Orthostatic Lying] Blood Pressure [Orthostatic Sitting] Blood Pressure [Orthostatic Standing] Pulse Oximetry 99 05/17/24 13:10 05/17/24 13:20 05/17/24 13:20 Pulse Rate 66 71 Pulse Rate [Orthostatic Lying] Pulse Rate [Orthostatic Sitting] Pulse Rate [Orthostatic Standing] Respiratory Rate 14 12 Blood Pressure 121/73 Blood Pressure [Orthostatic Lying] Blood Pressure [Orthostatic Sitting] Blood Pressure [Orthostatic Standing] Pulse Oximetry 100 98 05/17/24 13:30 05/17/24 13:39 05/17/24 13:39 Pulse Rate 67 64 Pulse Rate [Orthostatic Lying] Pulse Rate [Orthostatic Sitting] Pulse Rate [Orthostatic Standing] Respiratory Rate 12 15 Blood Pressure 129/67 Blood Pressure [Orthostatic Lying] Blood Pressure [Orthostatic Sitting] Blood Pressure [Orthostatic Standing] Pulse Oximetry 99 99 05/17/24 13:41 05/17/24 13:41 05/17/24 13:42 Pulse Rate 63 65 Pulse Rate [Orthostatic Lying] Pulse Rate [Orthostatic Sitting] Pulse Rate [Orthostatic Standing] Respiratory Rate 12 22 Blood Pressure 119/66 Blood Pressure [Orthostatic Lying] Blood Pressure [Orthostatic Sitting] Blood Pressure [Orthostatic Standing] Pulse Oximetry 100 98 05/17/24 13:43 05/17/24 13:43 05/17/24 13:45 Pulse Rate 76 Pulse Rate [Orthostatic Lying] 64 Pulse Rate [Orthostatic Sitting] 62 Pulse Rate [Orthostatic Standing] 78 Respiratory Rate 21 Blood Pressure 111/69 Blood Pressure [Orthostatic Lying] 129/67 Blood Pressure [Orthostatic Sitting] 119/66 Blood Pressure [Orthostatic Standing] 111/69 Pulse Oximetry 99 05/17/24 14:00 05/17/24 14:17 05/17/24 14:17 Pulse Rate 71 71 Pulse Rate [Orthostatic Lying] Pulse Rate [Orthostatic Sitting] Pulse Rate [Orthostatic Standing] Respiratory Rate 9 L 18 Blood Pressure 103/71 Blood Pressure [Orthostatic Lying] Blood Pressure [Orthostatic Sitting] Blood Pressure [Orthostatic Standing] Pulse Oximetry 98 99 05/17/24 14:20 05/17/24 14:20 05/17/24 14:30 Pulse Rate 69 Pulse Rate [Orthostatic Lying] Pulse Rate [Orthostatic Sitting] Pulse Rate [Orthostatic Standing] Respiratory Rate 13 Blood Pressure 117/62 108/66 Blood Pressure [Orthostatic Lying] Blood Pressure [Orthostatic Sitting] Blood Pressure [Orthostatic Standing] Pulse Oximetry 99 05/17/24 14:30 05/17/24 14:40 05/17/24 14:40 Pulse Rate 71 66 Pulse Rate [Orthostatic Lying] Pulse Rate [Orthostatic Sitting] Pulse Rate [Orthostatic Standing] Respiratory Rate 13 13 Blood Pressure 117/63 Blood Pressure [Orthostatic Lying] Blood Pressure [Orthostatic Sitting] Blood Pressure [Orthostatic Standing] Pulse Oximetry 97 98 05/17/24 14:50 05/17/24 14:50 05/17/24 15:00 Pulse Rate 67 Pulse Rate [Orthostatic Lying] Pulse Rate [Orthostatic Sitting] Pulse Rate [Orthostatic Standing] Respiratory Rate 21 Blood Pressure 121/58 L 124/66 Blood Pressure [Orthostatic Lying] Blood Pressure [Orthostatic Sitting] Blood Pressure [Orthostatic Standing] Pulse Oximetry 99 05/17/24 15:00 05/17/24 15:10 05/17/24 15:10 Pulse Rate 71 74 Pulse Rate [Orthostatic Lying] Pulse Rate [Orthostatic Sitting] Pulse Rate [Orthostatic Standing] Respiratory Rate 14 20 Blood Pressure 120/59 L Blood Pressure [Orthostatic Lying] Blood Pressure [Orthostatic Sitting] Blood Pressure [Orthostatic Standing] Pulse Oximetry 98 98 MDM - Syncope Lab Data Attestation: I reviewed the patient's lab results. 05/17/24 10:15 05/17/24 13:27 Labs: Lab Results 05/17/24 05/17/24 Range/Units 10:15 13:27 WBC 7.2 (4.5-11.0) X10^3/uL RBC 4.40 L (4.5-5.9) X10^6/uL Hgb 14.2 (13.5-17.5) g/dL Hct 42.7 (41-53) % MCV 97.0 (80-100) fL MCH 32.2 (26-34) PG MCHC 33.2 (30-36) % RDW 13.7 (11.6-14.8) % Plt Count 306 (150-400) X10^3/uL Neut % (Auto) 76.4 H (50-75) % Lymph % (Auto) 16.1 L (25-40) % [place] % (Auto) 6.3 (3-14) % Eos % (Auto) 0.8 L (2-4) % Baso % (Auto) 0.4 (0-2) % Neut # (Auto) 5500 (2922-2794) /uL Lymph # (Auto) 1200 (9986-0312) /uL [place] # (Auto) 400 (0-900) /uL Eos # (Auto) 100 (0-450) /uL Baso # (Auto) 0 (0-100) /uL PT 10.7 (9.4-12.5) SECONDS INR 0.9 (0.9-1.3) APTT 30 (25.1-36.5) SECONDS Sodium 138 (137-145) mmol/L Potassium 4.8 (3.4-5.1) mmol/L Chloride 110 H (98-107) mmol/L Carbon Dioxide 19 L (22-32) mmol/L BUN 25 H (9-20) mg/dL Creatinine 1.48 H 1.24 (0.66-1.25) mg/dL Estimated GFR 51 L > 60 (>60) mL/min BUN/Creatinine Ratio 16.9 (6-22) Glucose 124 H (80-110) mg/dL Calcium 9.3 (8.4-10.2) mg/dL Magnesium 2.3 (1.6-2.3) mg/dL Total Bilirubin 0.6 (0.2-1.3) mg/dL AST 31 (17-59) IU/L ALT 25 (<50) IU/L Alkaline Phosphatase 85 (38-126) U/L Total Creatine Kinase 88 (55-170) U/L Troponin I < 0.012 < 0.012 (0.01-0.034) ng/mL NT-Pro-B Natriuret Pep 47 (<125) pg/mL Total Protein 7.1 (6.3-8.2) g/dL Albumin 4.2 (3.5-5.0) g/dL Globulin 2.9 (1.7-4.1) g/dL Albumin/Globulin Ratio 1.4 (1.0-2.8) Lipase 90 (23-300) U/L Imaging Data Chest x-ray: Radiologist's Impression: [address] [address] XRay Report Signed Patient: Ricki Stewart MR#: [id number] : 1955 Acct:[id number] Age/Sex: 69 / M Date of Service: 05/17/24 Loc: ED Accession Number: [id number] Procedure: XR chest 1V Ordering Provider: Chirag Harper MD PROCEDURE: XR CHEST 1V INDICATIONS: chest pain TECHNIQUE: One view of the chest was acquired. COMPARISON: [facility], CR, XR CHEST 1V, 06/10/2023, 2:22. [facility], CR, XR CHEST 1V, 06/09/2023, 7:45. FINDINGS: Surgical changes and devices: None. Lungs and pleura: Lungs are clear. No pleural effusions or pneumothorax. Mediastinum: Mediastinal contours appear normal. Heart size is normal. Bones and chest wall: No suspicious bony lesions. Overlying soft tissues appear unremarkable. IMPRESSION: No acute cardiopulmonary abnormality is seen. Dictated by: Georges Lechuga M.D. on 05/17/2024 at 11:06 Approved by: Georges Lechuga M.D. on 05/17/2024 at 11:06 CT scan - head: Radiologist's Impression: [address] [address] [address] Scan Report Signed Patient: Ricki Stewart MR#: [id number] : 1955 Acct:[id number] Age/Sex: 69 / M Date of Service: 05/17/24 Loc: ED Accession Number: [id number] Procedure: CT head/brain wo con Ordering Provider: Chirag Harper MD PROCEDURE: CT HEAD/BRAIN WO CON INDICATIONS: Syncope with lac and few abrasions TECHNIQUE: Noncontrast 4.5 mm thick angled axial sections acquired from the foramen magnum to the vertex, with coronal and sagittal reformats. For radiation dose reduction, the following was used: automated exposure control, adjustment of mA and/or kV according to patient size. COMPARISON: [facility], CT, CT CERVICAL SPINE WO CON, 05/17/2024, 11:22. FINDINGS: Image quality: Mild streak artifact can be seen through the skull base. CSF spaces: Basal cisterns are patent. No extra-axial fluid collections. The ventricles are symmetric in size and shape. Brain: No intracranial bleeds or masses. There is cerebral volume loss for age, with resultant ventricular and sulcal prominence. There are periventricular and deep white matter chronic small vessel ischemic changes. There is intracranial internal carotid artery atherosclerosis. Skull and face: Calvarium and visualized facial bones appear intact, without suspicious lesions. Sinuses: Visualized sinuses and mastoids are clear. IMPRESSION: No acute intracranial hemorrhage is seen. No acute intracranial pathology. To the limits of this noncontrast study, no findings of intracranial masses or mass effect can be seen. Dictated by: Jose Ndiaye M.D. on 05/17/2024 at 11:01 Approved by: Jose Ndiaye M.D. on 05/17/2024 at 11:01 CT - cervical spine: Radiologist's Impression: Close Cervical Spine CT (Signed) Jose Ndiaye - 05/17/[address] (Signed) Jose Ndiaye - 05/17/24 Chest X-Ray (Signed) Georges Lechuga - 05/17/24 Launch?[place] [address] CT Scan Report Signed Patient: Ricki Stewart MR#: [id number] : 1955 Acct:[id number] Age/Sex: 69 / M Date of Service: 05/17/24 Loc: ED Accession Number: [id number] Procedure: CT cervical spine wo con Ordering Provider: Chirag Harper MD PROCEDURE: CT CERVICAL SPINE WO CON INDICATIONS: syncopal episode with head lac and several abrasions TECHNIQUE: Noncontrast 3 mm thick sections acquired from the skull base to the T4 level. Sagittal and coronal reformats were then constructed. For radiation dose reduction, the following was used: automated exposure control, adjustment of mA and/or kV according to patient size. COMPARISON: [facility], CT, CT HEAD/BRAIN WO CON, 05/17/2024, 11:22. [facility], CR, XR CHEST 1V, 05/17/2024, 10:08. FINDINGS: Image quality: Excellent. Bones: No fractures or dislocations. Visualized superior ribs are intact. A bone island is incidentally noted within the posterior elements of C2, as on series 5, image 46 and on series 4, image 41. Focal degenerative change is seen involving the C1-C2 interface anteriorly. At the C5-C6 level, there is moderate disc space narrowing seen, with associated endplate irregularity and sclerosis. Post erected endplate osteophytes can be seen at this level. Minimal to mild disc space narrowing can be seen at C6-C7. Soft tissues: Prevertebral soft tissues are normal in thickness. No paravertebral hematomas. No apical pneumothoraces. Incidental note is made of an azygos lobe. IMPRESSION: No displaced fracture or traumatic subluxation. Cervical spine degenerative change can be seen, which is worst at the C5-C6 level. Additional findings: C2 bone island Azygos lobe Dictated by: Jose Ndiaye M.D. on 05/17/2024 at 11:02 Approved by: Jose Ndiaye M.D. on 05/17/2024 at 11:03 ECG Data Attestation: I personally reviewed and interpreted this ECG as follows: Interpretation: Sinus bradycardia with rate of 56, no obvious ST segment elevation or depression changes. Flat T-waves lead 3. ND 186, QRS 98, QTC 386. MDM Narrative Medical decision making narrative: 69-year-old was exercising, running on home trampoline, develop shortness of breath while exercise, he stopped his exercise, stepped off the trampoline, walk to the door way, apparently had ground level fall unwitnessed, minor forehead linear abrasions nonsuturable, does not take blood thinner medications. Has neck pain. No obvious seizure activity. No known CAD. He had not been having trouble with exertion like this before. He feels recovered. He does have some frontal headache in the area of his abrasions. Also some neck pain. CT head, CT cervical spine requested. EKG, labs including troponin sent. Chest x-ray requested. EKG shows sinus bradycardia, no obvious ischemic changes. Initial troponin negative. CT studies to be performed. Creatinine mild elevation 1.48 noted, previously normal, possible component dehydration, hemoglobin normal. IV fluid bolus. Repeat creatinine 1.2 after IV fluids, improved, likely was dehydration component of his symptoms Stable for discharge, advised follow up with PCP, could consider stress testing or echocardiogram or other evaluation for exertional syncope or sp exertional syncope. 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 Home with family. Return precautions discussed. Critical Care Time Critical Care Time Critical Care Time: Yes Total Critical Care Time: 31 Attestation: The high probability of a clinically significant, sudden or life threatening deterioration of the [cardiopulmonary, cerebrovascular, neurologic,] system(s) required my full and direct attention, intervention and personal management. The aggregate critical care time was [31] minutes. This time is in addition to time spent performing reported procedures but includes the following: [x] Data Review and interpretation [x] Patient assessment and monitoring of vital signs [x] Documentation [x] Medication orders and management Discharge Plan Departure Patient Disposition: Home Clinical Impression: Syncope, Fall from ground level, Abrasion of forehead, Cervical strain, Abrasion of left shoulder, Dehydration Activity Restrictions/Additional Instructions: Exercise regimen this morning including running, shortness of breath, stopped running, walked from the exercise trampoline in the home, then had likely unwitnessed ground level fall, syncopal episode, struck forehead, nonsuturable small linear abrasions to forehead. CT head and cervical spine studies negative. EKG and serial blood tests not show evidence for heart attack. Kidney function suspicious for some degree of dehydration, IV fluids given. Consider further testing as an outpatient, this might include tests like echocardiogram ultrasound of the heart, stress testing of the heart, etc.. Recheck with your regular provider in the next couple of days to arrange further follow up as an outpatient. Maybe avoid exercise until this is all sorted out for now. Consider further recheck of your kidney function and follow up with your regular provider. Drink plenty of fluids. Return earlier to this/nearest emergency department for any change worsening symptoms or any concerns prior Prescriptions: No Action ascorbic acid (vitamin C) 500 MG tablet 500 mg PO DAILY Qty: 0 testosterone [Testim] 50 mg/5 gram (1 %) gel See Rx Instructions .ROUTE .COMPLEX Qty: 0 Patient Comments: Patient reports applies 4 clicks Rx Instructions: Apply cream once daily vitamin B complex [B Complex-Vitamin B12] 1 EACH tablet 1 tab PO DAILY Qty: 0 rutin 500 MG tablet 500 mg PO DAILY Qty: 0 omega 5-wpa-fzp-fish oil [Fish Oil] 1,000 MG capsule 1,000 mg PO DAILY Qty: 0 coQ10 (ubiquinol) 100 mg capsule 100 mg PO DAILY Qty: 0 liothyronine 5 mcg tablet 5 mcg PO DAILY levothyroxine 75 mcg tablet 75 mcg PO DAILY cholecalciferol (vitamin D3) 125 mcg (5,000 unit) Capsule 125 mcg PO DAILY tamsulosin 0.4 mg capsule 0.4 mg PO BEDTIME Qty: 90 3RF Referrals: Jorden Hurtado ARNP [Primary Care Provider] - Stand Alone Forms: Patient Portal/API
[2024-05-17 10:35] LABS: INR 0.9 (0.9-1.3); Prothrombin Time 10.7 SECONDS (9.4-12.5)
[2024-05-17 10:37] LABS: PTT Partial Thromboplastin Tim 30 SECONDS (25.1-36.5)
[2024-05-17 10:53] LABS: Alanine Aminotransferase 25 IU/L (<50); Albumin 4.2 g/dL (3.5-5.0); Albumin Globulin Ratio 1.4 (1.0-2.8); Alkaline Phosphatase 85 U/L (38-126); Aspartate Aminotransferase 31 IU/L (17-59); BUN Creatinine Ratio 16.9 (6-22); Bilirubin Total 0.6 mg/dL (0.2-1.3); Blood Urea Nitrogen 25 mg/dL (9-20); Calcium 9.3 mg/dL (8.4-10.2); Carbon Dioxide 19 mmol/L (22-32); Chloride 110 mmol/L (98-107); Creatine Kinase 88 U/L (55-170); Estimated Glomerular Filt Rate 51 mL/min (>60); Globulin 2.9 g/dL (1.7-4.1); Glucose 124 mg/dL (80-110); HEMOLYSIS < 15 (0-50); Lipase 90 U/L (23-300); Magnesium 2.3 mg/dL (1.6-2.3); Potassium 4.8 mmol/L (3.4-5.1); Sodium 138 mmol/L (137-145); Total Protein 7.1 g/dL (6.3-8.2)
[2024-05-17 11:05] LABS: NT-proBNP (BNP-Adult 18+) 47 pg/mL (<125); Troponin I < 0.012 ng/mL (0.01-0.034)
[2024-05-17] MEDS: BACITRACIN OINT 0.9 GM PCKT 3 APPLIC TOP (12:13)
[2024-05-17] MEDS: SODIUM CHLORIDE 0.9% 1,000 ML 1000 ML IV (12:13)
[2024-05-17 14:00] LABS: Troponin I < 0.012 ng/mL (0.01-0.034)
[2024-05-17 14:36] LABS: Estimated Glomerular Filt Rate > 60 mL/min (>60)
== END 2024-05-17 15:48 | disposition home or self-care (01) ==
PROVIDERS: Emergency Provider Emergency Medicine; Family Provider Registered Nurse; PCP Registered Nurse
DX: R55 Syncope and collapse (principal); S00.81XA Abrasion of other part of head, initial encounter; S40.212A Abrasion of left shoulder, initial encounter; S16.1XXA Strain of muscle, fascia and tendon at neck level, initial encounter; E86.0 Dehydration; W18.30XA Fall on same level, unspecified, initial encounter
CPT/HCPCS: 36415; 70450; 71045; 72125; 80053; 82550; 82565; 83690; 83735; 83880; 84484; 85025; 85610; 85730; 93005; 96360; 99284

== ENCOUNTER → 2024-06-25 | Outpatient (CLI) | payer MEDICARE, OTHER, SELFPAY ==
[2023-06-09 01:25] VITALS: BMI 24.4
--- NOTE | 2024-06-25 20:16 | DI.NM.S_ITS ---
DATE OF SERVICE: 06/25/2024 PROCEDURE: Exercise stress test. INDICATIONS: Syncope. CARDIAC STRESS: The patient underwent exercise stress test under the supervision of an attending staff. He walked on Miquel protocol for 9 minutes and 48 seconds, achieved 10.5 METS of workload, FADUMO -31%, maximum heart rate of 163, which was 107% of target heart rate. Resting blood pressure 130/80 and peak blood pressure 188/92 mmHg. Baseline rhythm was sinus with repolarization changes. During stress, no convincing inducible ischemic changes seen. No significant arrhythmia during stress. In early recovery, the patient has some isolated PVCs. No ventricular tachycardia. No chest pain. Had some shortness of breath. CONCLUSION: Exercise stress test is negative for inducible ischemia. Good exercise tolerance. Normal hemodynamic response. No significant arrhythmias during stress; however, isolated PVC in recovery. No ventricular tachycardia. No chest pain. Overall, low-risk exercise stress test. Ricki Stewart - LIVIA/alanis/MALU doc#: [id number]/job#: [id number] dd: 06/25/2024 12:52:00 dt: 06/25/2024 19:44:00 DICTATING /COPIES TO: Tristan Johnston MD COPIES MNE: ADÁN;
== END ==
LOC: RAD 07:43
PROVIDERS: Family Provider Registered Nurse; PCP Registered Nurse; Referring Provider Registered Nurse; Visit Provider Registered Nurse
DX: R55 Syncope and collapse (principal); R94.4 Abnormal results of kidney function studies
CPT/HCPCS: 93017

== ENCOUNTER → 2024-07-08 06:57 | Outpatient (CLI) | payer MEDICARE, OTHER, SELFPAY ==
[2023-06-09 01:25] VITALS: BMI 24.4
--- NOTE | 2024-07-08 06:58 | DI.ECHO.S_ITS ---
[place] [facility]+ [facility] : : [address] : : [place] : : [id number] : : Phone: [phone] Echocardiogram Report + + :Name: DAPHNEY CRENSHAW Study Date: 07/08/2024 Height: 72 in : :[facility] ReadingLocation: Weight: 180 lb : : Gender: Male BSA: 2.0 m2 : :: 1955 Age: 69 yrs BP: 139/79 mmHg: :Reason For Study: SYNCOPE AND COLLAPSE : :Ordering Physician: CHALO, : :FRANCHESKA Performed By: Mohsen Win : :Referring: FRANCHESKA ISABEL : + + Interpretation Summary 1. The left ventricular contractility is normal. Estimated ejection fraction is 50 to 55% with no segmental wall motion abnormalities. No LVH. Unable to comment on diastolic function. 2. The right ventricular contractility is normal. 3. All cardiac chambers are normal size. 4. Trace to mild aortic insufficiency. 5. No obvious intracardiac shunts. 6. No obvious intracardiac masses nor thrombi. 7. No hemodynamically significant pericardial effusion. 8. Low right-sided filling pressures. Conclusion: Low normal left ventricular systolic function with no significant valvular abnormalities. Procedure: A two-dimensional transthoracic echocardiogram with color flow and Doppler was performed. The study quality was technically good. There is no prior echocardiogram noted for this patient. The patient was in normal sinus rhythm during the exam. Left Ventricle: The left ventricle is normal in size. There is normal left ventricular wall thickness. There is no ventricular septal defect visualized. The ejection fraction is estimated to be 50-55%. There are no focal wall motion abnormalities. Right Ventricle: The right ventricle is normal in size and function. Atria: The left atrial size is normal. Right atrial size is normal. There is no Doppler evidence for an atrial septal defect. Mitral Valve: The mitral valve is normal in structure and function. There is no mitral regurgitation noted. Aortic Valve: The aortic valve is trileaflet. The aortic valve opens well. There is mild aortic regurgitation. Tricuspid Valve: The tricuspid valve is normal in structure and function. There is trace tricuspid regurgitation. The right ventricular systolic pressure is estimated to be at least 19 mmHg based on an estimated right atrial pressure of 3 mm Hg. Pulmonic Valve: The pulmonic valve is normal in structure and function. There is trace pulmonic regurgitation. Great Vessels: The aortic root is normal size. The ascending aorta is at the upper limits of normal in size. The pulmonary artery is normal size. The IVC is of normal diameter and collapses greater than 50% with a sniff. This suggests a low right atrial pressure of 3 mm Hg. Pericardium/ Pleura There is no pericardial effusion. There is no pleural effusion. MMode/2D Measurements & Calculations LVIDd: 4.3 cm LVOT diam: 2.2 cm LVIDs: 3.2 cm Ao root diam: 3.1 cm FS: 25.6 % asc Aorta Diam: 3.7 cm EPSS: 0.55 cm IVSd: 1.0 cm LVPWd: 0.98 cm LV kan. diameter/BSA (cm/m^2): 2.1 LV sys. diameter/BSA (cm/m^2): 1.6 LA A2 area: 20.1 cm2 RA long axis: 5.0 cm LA A4 area: 17.4 cm2 RA area: 17.9 cm2 LA length (vol): 4.9 cm RA vol: 54.6 ml LA vol: 60.6 ml RA : 26.8 ml/m2 LA vol index: 29.8 ml/m2 IVC diam: 1.7 cm RVD1 (basal): 3.8 cm RVD2 (mid): 3.2 cm TAPSE: 2.3 cm Doppler Measurements & Calculations Ao V2 max: 129.6 cm/sec LVOT Max Chad: 94.0 cm/sec Ao V2 mean: 92.3 cm/sec LV V1 max P.5 mmHg Ao max P.7 mmHg LV V1 VTI: 21.6 cm Ao mean P.8 mmHg IVA(I,D): 2.8 cm2 Ao V2 VTI: 28.8 cm IVA(V,D): 2.7 cm2 sev ratio: 0.75 IVA indexed to BSA (cm^2/m^2): 1.4 MV E max chad: 81.8 cm/sec TR max chad: 201.7 cm/sec MV A max chad: 69.5 cm/sec TR max P.4 mmHg MV E/A: 1.2 PA V2 max: 71.7 cm/sec Med Peak E' Chad: 8.5 cm/sec PA V2 mean: 51.8 cm/sec E/E' med: 9.6 PA mean P.2 mmHg Lat Peak E' Chad: 8.6 cm/sec PA pr(Accel): 13.9 mmHg E/E' lat: 9.6 E/e' average: 9.6 MV dec time: 0.18 sec SV(LVOT): 81.1 ml Reading Physician:
== END ==
PROVIDERS: Family Provider Registered Nurse; PCP Registered Nurse; Referring Provider Registered Nurse; Visit Provider Registered Nurse
DX: R55 Syncope and collapse (principal); R94.4 Abnormal results of kidney function studies; I35.1 Nonrheumatic aortic (valve) insufficiency
CPT/HCPCS: 93306